=== PATIENT | female | born 1975 | race African-American/Black ===

== ENCOUNTER 2017-03-04 20:57 | Emergency (ER) | payer SELFPAY ==
[2017-03-04 21:10] VITALS: BP 148/94; PULSE 71; TEMP 98.1; BMI 44.6
[2017-03-04] MEDS ORDERED: ALBUTEROL SO4 2.5/IPRATROPIUM 0.5 INH SOL 3 ML VIAL.NEB. NEB ONE ×3 (21:42→22:28)
[2017-03-04] MEDS ORDERED: predniSONE 20 MG TABLET (UD) ONE (22:14)
[2017-03-04] MEDS ORDERED: TOBRAMYCIN 0.3% OPHTH SOLN 5 ML BOTTLE ONE (22:14)
--- NOTE | 2017-03-04 22:45 | PDOC ---
History of Present Illness - General Chief Complaint: Cold Symptoms Stated Complaint: COLD SYMPTOMS Time Seen by Provider: 03/04/17 21:27 History Source: Patient Exam Limitations: No Limitations - History of Present Illness Initial Comments: 03/04/17 22:39 Patient's here with complaints of redness and purulent yellow drainage from left eye. also had an acute asthma exacerbation with ALLERGIES and pollen with wheezing, chest tightness, and cough nonproductive. Has used albuterol nebulizers at home with minimal resolved. 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 Smoker Timing/Duration: reports: changing over time, getting worse Severity: reports: moderate Associated Symptoms: reports: chest pain/soreness, cough, fever/chills, muscle aches, nasal drainage, sore throat Past History - Travel Traveled outside of the country in the last 30 days: No Close contact w/someone who was outside of country & ill: No - Past Medical History Allergies/Adverse Reactions: Allergies Allergy/AdvReac Type Severity Reaction Status Date / Time No Known Allergies Allergy Verified 03/04/17 21:07 Home Medications: Ambulatory Orders Levothyroxine [Synthroid -] 25 mcg PO DAILY 02/15/13 Albuterol Sulfate Inhaler - [Ventolin Hfa Inhaler -] 1 - 2 inh PO PRN 10/05/15 Loratadine [Claritin -] 10 mg PO DAILY 10/05/15 Albuterol 0.083% Nebulizer Irina [Ventolin 0.083% Nebulizer Soln -] 1 neb NEB Q4H PRN #30 vial 03/04/17 Azithromycin [Zithromax -] 250 mg PO UTDICT #6 tab 03/04/17 Prednisone [Deltasone -] 20 mg PO BID #10 tablet 03/04/17 Asthma: Yes Thyroid Disease: Yes - Immunization History Immunization Up to Date: Yes - Psycho/Social/Smoking Cessation Hx Anxiety: No Suicidal Ideation: No Smoking Status: Yes Smoking History: Current every day smoker Have you smoked in the past 12 months: Yes Number of Cigarettes Smoked Daily: 6 Information on smoking cessation initiated: No Hx Alcohol Use: Yes ("RARELY") Drug/Substance Use Hx: No Substance Use Type: None Review of Systems - Review of Systems Able to Perform ROS?: Yes Is the patient limited Indonesian proficient: Yes Constitutional: Yes: Symptoms Reported, See HPI, Chills, Fever, Malaise HEENTM: Yes: Symptoms Reported, See HPI, Eye Pain (with drainage ), Nose Congestion, Throat Pain, Throat Swelling, Difficulty Swallowing Respiratory: Yes: Symptoms reported, See HPI, Cough, Wheezing ABD/GI: Yes: Symptoms Reported Musculoskeletal: Yes: Symptoms Reported, Muscle Weakness *Physical Exam - Vital Signs Last Vital Signs Temp Pulse Resp BP Pulse Ox 98.1 F 71 18 148/94 100 03/04/17 21:07 03/04/17 21:07 03/04/17 21:07 03/04/17 21:07 03/04/17 21:07 - Physical Exam General Appearance: Yes: Nourished, Appropriately Dressed, Apparent Distress HEENT: positive: TALA, TMs Normal (congested but landmarks easily visualized), Pharyngeal Erythema, Nasal Congestion, Rhinorrhea (clear drainage), Sinus Tenderness, TM Bulging, Other (erythematous conjunctiva to left eye with. Yellow drainage and mild swelling to the lids. Visual acuity within normal limits). negative: Normal ENT Inspection, Pharynx Normal (no exudate) Neck: positive: Tender, Supple, Lymphadenopathy (R), Lymphadenopathy (L) Respiratory/Chest: positive: Decreased Breath Sounds (bilateral), Wheezing. negative: Lungs Clear Gastrointestinal/Abdominal: positive: Normal Bowel Sounds, Soft Extremity: positive: Normal Capillary Refill, Normal Inspection, Normal Range of Motion Neurologic: positive: kinesiology internship II-XII NML intact, Fully Oriented, Alert, Motor Strength 5/5 ED Treatment Course - Medications Given in the ED: ED Medications Discontinued Medications Generic Name Dose Route Start Last Admin Trade Name Freq PRN Reason Stop Dose Admin Albuterol/Ipratropium 1 amp 03/04/17 22:28 03/04/17 22:30 Duoneb - NEB 03/04/17 22:29 1 amp ONCE ONE Administration Progress Note - Progress Note Progress Note: Asthma exacerbation with ALLERGIC rhinitis, pharyngitis, conjunctivitis. Will treat with albuterol nebulizers, short course of prednisone, Z-Abimael, and tobramycin drops for conjunctivitis. *DC/Admit/Observation/Transfer Diagnosis at time of Disposition: Conjunctivitis Qualifiers: Conjunctivitis type: acute Acute conjunctivitis type: unspecified Laterality: left Qualified Code(s): H10.32 - Unspecified acute conjunctivitis, left eye Pharyngitis Qualifiers: Pharyngitis/tonsillitis etiology: unspecified etiology Qualified Code(s): J02.9 - Acute pharyngitis, unspecified - Discharge Dispostion Disposition: HOME Condition at time of disposition: Stable Admit: No Decision to Admit order Date/Time: 03/04/17 22:49 - Patient Instructions Printed Discharge Instructions: DI for Acute Bronchitis, DI for Conjunctivitis Additional Instructions: Rest, drink lots of fluids: Teas, water, soups, Pedialyte Saltwater gargles Steamy showers/seem to face break up mucus Avoid contact with others until fevers and cough resolved Lots of handwashing and good hygiene Continue [id number] medications for symptomatic relief Tylenol or Motrin for fever and pain Albuterol nebulizers every 4-6 hours for the next 2 days then as needed Prednisone 40 mg daily for the next 5 days Z-Abimael as directed Tobramycin drops 2 to left eye 4 times a day for 5 days and frequent handwashing Followup with private physician in one to 2 days as needed Return to emergency department for worsened symptoms, fevers, dehydration - Post Discharge Activity Work/School Note: Back to Work
== END 2017-03-04 23:19 | disposition home or self-care (01) ==
LOC: JERFT 20:57
PROC: 3E0F7GC Introduction of Other Therapeutic Substance into Respiratory Tract, Via Natural or Artificial Opening (ICD-10-PCS; principal; 2017-03-04)
DX: J20.9 Acute bronchitis, unspecified (principal); J45.909 Unspecified asthma, uncomplicated; H10.32 Unspecified acute conjunctivitis, left eye; E03.9 Hypothyroidism, unspecified
CPT/HCPCS: 99281-25

== ENCOUNTER 2017-03-09 16:42 | Inpatient (IN) | payer SELFPAY ==
[2017-03-09 16:49] VITALS: BMI 45.4
[2017-03-09] MEDS ORDERED: ALBUTEROL SO4 2.5/IPRATROPIUM 0.5 INH SOL 3 ML VIAL.NEB. NEB ONE ×4 (17:09→17:36)
[2017-03-09] MEDS ORDERED: predniSONE 20 MG TABLET (UD) PO ONE (17:17)
[2017-03-09] MEDS ORDERED: predniSONE 20 MG TABLET (UD) ONE (17:20)
--- NOTE | 2017-03-09 18:17 | PDOC ---
History of Present Illness <Angeline Elliott - Last Filed: 03/09/17 18:36> - General History Source: Patient Exam Limitations: No Limitations - History of Present Illness Initial Comments: 03/09/17 18:12 41 yr female history of asthma no intubations, has stayed overnight in the past for asthma presents to the ER for wheezing, shortness of breath. Pt seen in ER on 03/04/17 for same dc home with zpack , prednisone, , albuterol inhaler. Pt states she is not feeling any better. denies fever. Timing/Duration: reports: week Severity: reports: moderate Possible Cause: Yes: occasional episodes <Bisi Howard - Last Filed: 03/09/17 22:08> - General Chief Complaint: Asthma Stated Complaint: ASTHMA Time Seen by Provider: 03/09/17 17:05 Past History <Angeline Elliott - Last Filed: 03/09/17 18:36> - Past Medical History Asthma: Yes Thyroid Disease: Yes - Immunization History Immunization Up to Date: Yes - Psycho/Social/Smoking Cessation Hx Anxiety: No Suicidal Ideation: No Smoking Status: Yes Smoking History: Current every day smoker Have you smoked in the past 12 months: Yes Number of Cigarettes Smoked Daily: 6 Information on smoking cessation initiated: No Hx Alcohol Use: No Drug/Substance Use Hx: No Substance Use Type: None <Bisi Howard - Last Filed: 03/09/17 22:08> - Past Medical History Allergies/Adverse Reactions: Allergies Allergy/AdvReac Type Severity Reaction Status Date / Time No Known Allergies Allergy Verified 03/09/17 16:49 Home Medications: Ambulatory Orders Albuterol 0.083% Nebulizer Irina [Ventolin 0.083% Nebulizer Soln -] 1 neb NEB Q6H 03/09/17 Albuterol Sulfate Inhaler - [Ventolin Hfa Inhaler -] 2 inh PO Q6H 03/09/17 Levothyroxine [Synthroid -] 25 mcg PO DAILY 03/09/17 Respiratory Specific PMHX - Complaint Specific PMHX Bronchitis: Yes <Bisi Howard - Last Filed: 03/09/17 22:08> Review of Systems - Review of Systems Able to Perform ROS?: Yes Is the patient limited Georgian proficient: No Constitutional: No: Symptoms Reported Respiratory: Yes: Cough, Shortness of Breath, SOB with Exertion, SOB at Rest, Wheezing Cardiac (ROS): No: Symptoms Reported ABD/GI: No: Symptoms Reported : No: Symptoms Reported Musculoskeletal: No: Symptoms Reported Integumentary: No: Symptoms Reported Neurological: No: Symptoms reported <Bisi Howard - Last Filed: 03/09/17 22:08> *Physical Exam - Vital Signs Last Vital Signs Temp Pulse Resp BP Pulse Ox 98.0 F 89 20 136/70 100 03/09/17 16:47 03/09/17 16:47 03/09/17 16:47 03/09/17 16:47 03/09/17 16:47 <Angeline Elliott - Last Filed: 03/09/17 18:36> - Vital Signs Last Vital Signs Temp Pulse Resp BP Pulse Ox 98.0 F 89 20 136/70 100 03/09/17 16:47 03/09/17 16:47 03/09/17 16:47 03/09/17 16:47 03/09/17 16:47 - Physical Exam General Appearance: Yes: Nourished, Appropriately Dressed HEENT: positive: EOMI, TALA, TMs Normal, Pharynx Normal Neck: negative: Tender, Lymphadenopathy (R), Lymphadenopathy (L) Respiratory/Chest: positive: Decreased Breath Sounds, Wheezing Cardiovascular: positive: Regular Rhythm, Regular Rate Gastrointestinal/Abdominal: positive: Normal Bowel Sounds, Soft Musculoskeletal: positive: Normal Inspection Extremity: positive: Normal Capillary Refill, Normal Inspection, Normal Range of Motion Integumentary: positive: Normal Color, Dry, Warm Neurologic: positive: Fully Oriented, Alert, Normal Mood/Affect, Normal Response , Motor Strength 5/5 <Bisi Howard - Last Filed: 03/09/17 22:08> ED Treatment Course - ADDITIONAL ORDERS Additional order review: Laboratory Results 03/09/17 17:26 Urine HCG, Qual Negative - Medications Given in the ED: ED Medications Discontinued Medications Generic Name Dose Route Start Last Admin Trade Name Freq PRN Reason Stop Dose Admin Albuterol/Ipratropium 1 amp 03/09/17 17:09 03/09/17 17:12 Duoneb - NEB 03/09/17 17:10 1 amp ONCE ONE Administration Albuterol/Ipratropium 1 amp 03/09/17 17:32 03/09/17 17:37 Duoneb - NEB 03/09/17 17:33 1 amp ONCE ONE Administration Prednisone 60 mg 03/09/17 17:17 03/09/17 17:22 Deltasone - PO 03/09/17 17:18 60 mg ONCE ONE Administration <Angeline Elliott - Last Filed: 03/09/17 18:36> - LABORATORY CBC & Chemistry Diagram: 03/09/17 18:50 03/09/17 19:09 - ADDITIONAL ORDERS Additional order review: Laboratory Results 03/09/17 17:26 Urine HCG, Qual Negative - RADIOLOGY Radiology Studies Ordered: Category Date Time Status CHEST PA & LAT [RAD] Stat Radiology 03/09/17 17:40 Taken - Medications Given in the ED: ED Medications Discontinued Medications Generic Name Dose Route Start Last Admin Trade Name Freq PRN Reason Stop Dose Admin Albuterol/Ipratropium 1 amp 03/09/17 17:09 03/09/17 17:12 Duoneb - NEB 03/09/17 17:10 1 amp ONCE ONE Administration Albuterol/Ipratropium 1 amp 03/09/17 17:32 03/09/17 17:37 Duoneb - NEB 03/09/17 17:33 1 amp ONCE ONE Administration Prednisone 60 mg 03/09/17 17:17 03/09/17 17:22 Deltasone - PO 03/09/17 17:18 60 mg ONCE ONE Administration <Bisi Howard - Last Filed: 03/09/17 22:08> Progress Note - Progress Note Progress Note: pt continues to have tightness, wheezing after 3 treatments will transfer to main ER for further care and possible admission pt aware spoke to charge nurse Brady and she is making bed for pt <Bisi Howard - Last Filed: 03/09/17 22:08> Medical Decision Making - Medical Decision Making 03/09/17 18:15 cc: wheezing, SOB, coughing not improving with zpack, prednisone (last dose yesterday 20mg), albuterol nebs pt speaking full sentences with some distress will give duoneb x3, prednisone 60mg and re-evaluate pulse ox is 100% on RA however pt is wheezing with sob report given to . pt placed in bed 4. 03/09/17 22:07 <Bisi Howard - Last Filed: 03/09/17 22:08> *DC/Admit/Observation/Transfer <Angeline Elliott - Last Filed: 03/09/17 18:36> <Bisi Howard - Last Filed: 03/09/17 22:08> Diagnosis at time of Disposition: Asthma exacerbation
--- NOTE | 2017-03-09 18:38 | PDOC ---
*Physical Exam - Vital Signs Last Vital Signs Temp Pulse Resp BP Pulse Ox 98.0 F 89 20 136/70 100 03/09/17 16:47 03/09/17 16:47 03/09/17 16:47 03/09/17 16:47 03/09/17 16:47 ED Treatment Course - ADDITIONAL ORDERS Additional order review: Laboratory Results 03/09/17 17:26 Urine HCG, Qual Negative - Medications Given in the ED: ED Medications Discontinued Medications Generic Name Dose Route Start Last Admin Trade Name Charli PRN Reason Stop Dose Admin Albuterol/Ipratropium 1 amp 03/09/17 17:09 03/09/17 17:12 Duoneb - NEB 03/09/17 17:10 1 amp ONCE ONE Administration Albuterol/Ipratropium 1 amp 03/09/17 17:32 03/09/17 17:37 Duoneb - NEB 03/09/17 17:33 1 amp ONCE ONE Administration Prednisone 60 mg 03/09/17 17:17 03/09/17 17:22 Deltasone - PO 03/09/17 17:18 60 mg ONCE ONE Administration Medical Decision Making - Medical Decision Making 03/09/17 18:37 41-year-old female with a history of asthma is being referred from [facility] for persistent expiratory wheezing despite steroids, multiple respiratory treatments. Patient was seen for the same complaint on March 04 and discharged with a course of Zithromax, a steroid taper that she ended yesterday with 20 mg of prednisone and she has a nebulizer at home that she has been using. She does smoke, but she said in the last 24 hours. She is only smoking 1 cigarette. She denies any fever or chills or productive cough. She denies nausea or vomiting She does work at [employer] is therefore exposed to a variety of illnesses. 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
[2017-03-09 19:14] LABS: BASOPHIL 0.6 % (0-2.0); EOSINOPHIL 3.3 % (0-4.5); MCH 26.9 pg (25.7-33.7); MCHC 31.7 g/dl (32.0-36.0); MEAN CELL VOLUME 84.7 fl (80-96); MEAN PLT VOLUME 9.5 fl (7.5-11.1); NEUTROPHILS 70.9 % (42.8-82.8); PLATELET COUNT 212 K/MM3 (134-434); RDW 13.6 % (11.6-15.6)
[2017-03-09 19:45] LABS: ALBUMIN 3.7 g/dl (3.4-5.0); ALK PHOS 72 U/L (45-117); ANION GAP 9 (8-16); BILIRUBIN,TOTAL 0.4 mg/dL (0.2-1.0); CO2 28 mmol/L (21-32); COCKROFT - GAULT 159.2475; CREATININE 0.9 mg/dL (0.55-1.02); GLUCOSE,RANDOM 93 mg/dL (74-106); SGOT/AST 15 U/L (15-37); SGPT/ALT 19 U/L (12-78)
[2017-03-09] MEDS ORDERED: ALBUTEROL SO4 2.5/IPRATROPIUM 0.5 INH SOL 3 ML VIAL.NEB. NEB STA (21:46)
[2017-03-10] MEDS ORDERED: PROMETHAZINE HCL ORAL SYRUP 6.25 MG/5 ML (BULK BOTTLE) PO PRN (01:28)
[2017-03-10] MEDS ORDERED: MONTELUKAST NA 5 MG TAB.CHEW PO SCH (01:30)
[2017-03-10] MEDS: ALBUTEROL SO4 2.5/IPRATROPIUM 0.5 INH SOL 3 ML VIAL.NEB. NEB PRN ×3 (02:26→18:31)
[2017-03-10] MEDS: DEXTROSE 5%-0.45% SALINE 1,000 ML IV SCH (02:35)
[2017-03-10] MEDS ORDERED: MONTELUKAST NA 10 MG TABLET PO SCH (02:47)
[2017-03-10] MEDS: methylPREDNISolone NA SUCC 40 MG/1 ML VIAL IVPB SCH ×4 (02:48→21:37)
[2017-03-10] MEDS ORDERED: PROMETHAZINE HCL 25 MG TABLET PO PRN (02:49)
[2017-03-10] MEDS: BUDESONIDE/FORMETEROL FUMARATE 160/4.5 mcg INHALER IH SCH ×3 (04:24→21:41)
[2017-03-10] MEDS: LEVOFLOXACIN 500 MG IVPB 100 ML IVPB SCH ×2 (04:58→21:37)
[2017-03-10] MEDS: LEVOTHYROXINE NA 25 MCG TABLET (FP) PO SCH (06:32)
[2017-03-10 08:08] LABS: BASOPHIL 0.2 % (0-2.0); MCH 27.7 pg (25.7-33.7); MCHC 32.8 g/dl (32.0-36.0); MEAN CELL VOLUME 84.4 fl (80-96); MEAN PLT VOLUME 9.2 fl (7.5-11.1); NEUTROPHILS 87.7 % (42.8-82.8); PLATELET COUNT 231 K/MM3 (134-434); RDW 13.7 % (11.6-15.6); WHITE BLOOD COUNT 9.4 K/mm3 (4.0-10.0)
[2017-03-10 08:31] LABS: ALBUMIN 3.5 g/dl (3.4-5.0); ANION GAP 11 (8-16); CALCIUM 9.1 mg/dL (8.5-10.1); CO2 24 mmol/L (21-32); COCKROFT - GAULT 179.1545; CREATININE 0.8 mg/dL (0.55-1.02); GLUCOSE,RANDOM 117 mg/dL (74-106); SGOT/AST 16 U/L (15-37); SGPT/ALT 22 U/L (12-78)
[2017-03-10 08:32] LABS: ALK PHOS 73 U/L (45-117); BILIRUBIN,TOTAL 0.4 mg/dL (0.2-1.0); TOT PROT 6.8 g/dl (6.4-8.2)
[2017-03-10] MEDS ORDERED: PT OWN MED DRAWER 7, Y5N ONE (09:25)
[2017-03-10] MEDS: HEPARIN NA (PORCINE) 5,000 UNITS/ML 1ML VIAL SQ SCH ×2 (09:27→21:37)
--- NOTE | 2017-03-10 11:44 | EKG ---
Test Reason : Blood Pressure : / mmHG Vent. Rate : 080 BPM Atrial Rate : 080 BPM P-R Int : 164 ms QRS Dur : 086 ms QT Int : 364 ms P-R-T Axes : 074 016 042 degrees QTc Int : 419 ms NORMAL SINUS RHYTHM NORMAL ECG NO PREVIOUS ECGS AVAILABLE Confirmed by BERNARD SIERRA MD ([id number]) on 03/10/2017 11:43:57 AM Referred By: Confirmed By:BERNARD SIERRA MD
--- NOTE | 2017-03-10 14:56 | PN ---
Progress Note (short form) - Note Progress Note: PULMONARY CONSULTATION DICTATED 03/10/17 IMP ASTHMA EXACERBATION HYPOTHYROIDISM SMOKER PLAN IV STEROIDS INHALED BRONCHODILATORS O2 MONITOR PEAK FLOW PFTS OUTPATIENT IGE LEVEL OUTPATIENT SMOKING CESSATION COUNSELED DR CHAUDHARY Problem List - Problems (1) Asthma exacerbation Code(s): J45.901 - UNSPECIFIED ASTHMA WITH (ACUTE) EXACERBATION (2) Hypothyroid Code(s): E03.9 - HYPOTHYROIDISM, UNSPECIFIED (3) Tobacco abuse Code(s): Z72.0 - TOBACCO USE
--- NOTE | 2017-03-10 16:57 | CONS ---
DATE OF CONSULTATION: 03/10/2017 REFERRING PHYSICIAN: María Hui MD The patient is a 41-year-old black female with a past med of chronic asthma, history of tobacco use, currently still smoking, admitted to [facility] with complaint of increasing shortness of breath, cough, and bronchospasm. The patient states she was doing well until March 04. At the time, she started developing cough and chest congestion. She attributed this to the pollen. She was seen in the emergency room and given prednisone, inhaled bronchodilator, with initial improvement. She states that while working at [employer], she started using extra strength production sound mixer the past couple of days, which started causing increased severity of the asthma symptoms. The symptoms progressively got worse, at which time she presented to the emergency room. In the ER, she was treated with IV steroids, inhaled bronchodilators, and transferred up to floor for further management. She has never been intubated although has been hospitalized in the past. There is no history of recent travel. There is no history of DVT or PE in the past. Denies any hemoptysis. Denies any chest pains or palpitations. Past medical history, again, includes chronic persistent asthma and allergies. Current medications include DuoNeb, Singulair, Phenergan, Synthroid, Symbicort, Solu-Medrol, and Levaquin. REVIEW OF SYSTEMS: Positive cough, positive bronchospasm. No chest pain, no palpitation. Positive cough. No abdominal pain. No lower extremity edema. PHYSICAL EXAMINATION: General: The patient is a well-developed, well-nourished female, awake, alert, in no acute distress. Vital Signs: She is currently afebrile. Blood pressure is 139/84. Respiratory rate is 18. O2 saturation is 95% on room air. HEENT: Normocephalic, atraumatic. Neck: Supple. Heart: Regular, S1, S2. Chest: Scattered bilateral wheezes. Abdomen: Soft. Bowel sounds are positive. Extremities: No cyanosis, edema. LABORATORIES: WBC is 9.4, hemoglobin 12.5, hematocrit 38.2, with a platelet count 231,000. BUN is 8, creatinine 0.8. Chest x-ray reveals no infiltrates and no effusion. IMPRESSION: 1. Acute asthma exacerbation, likely secondary to exposure to cleaning solvents as well as . 2. History of hypothyroidism. PLAN: Continue IV steroids, inhaled bronchodilators, supplemental O2. Start Symbicort 160/4.5 two puffs q.12 hours, inhaled bronchodilators q.4 hours p.r.n. Monitor peak flow. PFTs as outpatient. ARIANNA CHAUDHARY M.D. FRANDY/[id number]
--- NOTE | 2017-03-10 20:52 | PN ---
Progress Note, Physician History of Present Illness: No new complaints - Current Medication List Current Medications: Active Medications Albuterol/Ipratropium (Duoneb -) 1 amp NEB Q6H PRN PRN Reason: SHORTNESS OF BREATH Last Admin: 03/10/17 18:31 Dose: 1 amp Budesonide/Formoterol Fumarate (Symbicort 160/4.5mcg -) 2 puff IH BID [facility] Last Admin: 03/10/17 09:29 Dose: 2 puff Heparin Sodium (Porcine) (Heparin -) 5,000 unit SQ BID [facility] Last Admin: 03/10/17 09:27 Dose: 5,000 unit Dextrose/Sodium Chloride (D5-1/2ns -) 1,000 mls @ 50 mls/hr IV ASDIR [facility] Last Admin: 03/10/17 02:35 Dose: 50 mls/hr Levofloxacin (Levaquin 500 Mg Premixed Ivpb -) 100 mls @ 100 mls/hr IVPB DAILY [facility] Last Admin: 03/10/17 04:58 Dose: 100 mls/hr Levothyroxine Sodium (Synthroid -) 25 mcg PO DAILY@0700 [facility] Last Admin: 03/10/17 06:32 Dose: 25 mcg Methylprednisolone Sodium Succinate (Solu-Medrol -) 40 mg IVPB Q6H-IV [facility] Last Admin: 03/10/17 16:05 Dose: 40 mg Montelukast Sodium (Singulair -) 10 mg PO HS [facility] Promethazine HCl (Phenergan -) 12.5 mg PO Q6H PRN PRN Reason: NAUSEA AND/OR VOMITING Last Admin: 03/10/17 05:13 Dose: 12.5 mg - Objective Vital Signs: Vital Signs Temperature 98.5 F 03/10/17 14:00 Pulse Rate 97 H 03/10/17 14:00 Respiratory Rate 18 03/10/17 18:00 Blood Pressure 144/88 03/10/17 14:00 O2 Sat by Pulse Oximetry (%) 95 03/10/17 18:00 Constitutional: Yes: Well Nourished HENT: Yes: WNL Neck: Yes: Supple Cardiovascular: Yes: WNL, Regular Rate and Rhythm Respiratory: Yes: Wheezes Gastrointestinal: Yes: WNL, Normal Bowel Sounds, Soft Labs: CBC, BMP 03/10/17 07:08 03/10/17 07:08 Problem List - Problems (1) Asthma exacerbation Assessment/Plan: Cont IV steroids Cont IV levaquin Cont nebulizers As per pulmonary Code(s): J45.901 - UNSPECIFIED ASTHMA WITH (ACUTE) EXACERBATION (2) Hypothyroid Assessment/Plan: Cont levothyroxine Code(s): E03.9 - HYPOTHYROIDISM, UNSPECIFIED (3) Tobacco abuse Code(s): Z72.0 - TOBACCO USE (4) Morbid obesity Code(s): E66.01 - MORBID (SEVERE) OBESITY DUE TO EXCESS CALORIES
[2017-03-11] MEDS: DEXTROSE 5%-0.45% SALINE 1,000 ML IV SCH (02:00)
[2017-03-11] MEDS: methylPREDNISolone NA SUCC 40 MG/1 ML VIAL IVPB SCH ×2 (03:13→10:08)
[2017-03-11] MEDS: ALBUTEROL SO4 2.5/IPRATROPIUM 0.5 INH SOL 3 ML VIAL.NEB. NEB PRN ×2 (04:15→10:32)
[2017-03-11] MEDS: LEVOTHYROXINE NA 25 MCG TABLET (FP) PO SCH (06:35)
[2017-03-11] MEDS ORDERED: PT OWN MED DRAWER 7, Y5N ONE (10:07)
[2017-03-11] MEDS: HEPARIN NA (PORCINE) 5,000 UNITS/ML 1ML VIAL SQ SCH (10:08)
[2017-03-11] MEDS: LEVOFLOXACIN 500 MG IVPB 100 ML IVPB SCH (10:08)
[2017-03-11] MEDS: BUDESONIDE/FORMETEROL FUMARATE 160/4.5 mcg INHALER IH SCH (10:09)
--- NOTE | 2017-03-11 11:37 | PN ---
Progress Note (short form) - Note Progress Note: PULMONARY Feeling better. Less cough and wheezing. Peak flow 350. Last Vital Signs Temp Pulse Resp BP Pulse Ox 98.0 F 92 H 18 119/71 95 03/11/17 07:12 03/11/17 07:12 03/11/17 07:12 03/11/17 07:12 03/10/17 21:00 Gen: NAD at rest Heart: RRR Lung: scattered wheezes Abd: soft, nontender Ext: no edema CBC, BMP 03/10/17 07:08 03/10/17 07:08 Active Medications Albuterol/Ipratropium (Duoneb -) 1 amp NEB Q6H PRN PRN Reason: SHORTNESS OF BREATH Last Admin: 03/11/17 10:32 Dose: 1 amp Budesonide/Formoterol Fumarate (Symbicort 160/4.5mcg -) 2 puff IH BID [facility] Last Admin: 03/11/17 10:09 Dose: 2 puff Heparin Sodium (Porcine) (Heparin -) 5,000 unit SQ BID [facility] Last Admin: 03/11/17 10:08 Dose: 5,000 unit Dextrose/Sodium Chloride (D5-1/2ns -) 1,000 mls @ 50 mls/hr IV ASDIR [facility] Last Admin: 03/11/17 02:00 Dose: 50 mls/hr Levofloxacin (Levaquin 500 Mg Premixed Ivpb -) 100 mls @ 100 mls/hr IVPB DAILY [facility] Last Admin: 03/11/17 10:08 Dose: 100 mls/hr Levothyroxine Sodium (Synthroid -) 25 mcg PO DAILY@0700 [facility] Last Admin: 03/11/17 06:35 Dose: 25 mcg Methylprednisolone Sodium Succinate (Solu-Medrol -) 40 mg IVPB Q6H-IV [facility] Last Admin: 03/11/17 10:08 Dose: 40 mg Montelukast Sodium (Singulair -) 10 mg PO HS [facility] Last Admin: 03/10/17 21:41 Dose: 10 mg Promethazine HCl (Phenergan -) 12.5 mg PO Q6H PRN PRN Reason: NAUSEA AND/OR VOMITING Last Admin: 03/10/17 05:13 Dose: 12.5 mg A/P Acute Asthma Exacerbation Hypothyroidism Smoker - can change steroids to PO and taper as outpt - inhaled bronchodilators - complete antibiotics - outpt f/u and PFTs - smoking cessation - can d/c home from pulmonary standpoint
[2017-03-11 13:00] VITALS: BP 139/84; PULSE 93; TEMP 98.7
--- NOTE | 2017-03-11 13:22 | DS ---
Physical Examination Vital Signs: Vital Signs Temperature 98.7 F 03/11/17 12:59 Pulse Rate 93 H 03/11/17 12:59 Respiratory Rate 18 03/11/17 12:59 Blood Pressure 139/84 03/11/17 12:59 O2 Sat by Pulse Oximetry (%) 92 L 03/11/17 09:00 Constitutional: Yes: Well Nourished Eyes: Yes: WNL HENT: Yes: WNL Neck: Yes: Supple Cardiovascular: Yes: WNL, Regular Rate and Rhythm Respiratory: Yes: WNL, Regular, CTA Bilaterally Gastrointestinal: Yes: WNL, Normal Bowel Sounds, Soft Labs: CBC, BMP 03/10/17 07:08 03/10/17 07:08 Discharge Summary Reason For Visit: ASTHMA EXACERBATION Current Active Problems Asthma exacerbation (Acute) Hypothyroid (Acute) Tobacco abuse (Acute) Hospital Course: Pt admitted for asthma exacerbation CXR was negative Pt improved on IV steroids /IV levaquin. Pt was seen by pulmonary and changed to PO prednisone/levaquin. Pt discharged home and is to f/u in my office this week. Pt also advised that she has to stop smoking and use nicoderm patch for wc she was given a prewscription. Condition: Fair - Instructions Diet, Activity, Other Instructions: Regular diet See Dr Lafleur pr Dr Hui this week [phone] Referrals: David Lafleur MD [Primary Care Provider] - Disposition: HOME - Home Medications Comprehensive Discharge Medication List: Ambulatory Orders Albuterol 0.083% Nebulizer Irina [Ventolin 0.083% Nebulizer Soln -] 1 neb NEB Q6H 03/09/17 Albuterol Sulfate Inhaler - [Ventolin HFA Inhaler -] 2 inh PO Q6H 03/09/17 Levothyroxine [Synthroid -] 25 mcg PO DAILY 03/09/17 Budesonide/Formeterol Fumarate [SYMBICORT 160/4.5mcg -] 2 puff IH BID #1 inhaler 03/11/17 Levofloxacin [Levaquin] 500 mg PO DAILY #10 tablet 03/11/17 Montelukast Na [Singulair -] 10 mg PO HS tab.chew 03/11/17 Montelukast Na [Singulair -] 10 mg PO HS tablet 03/11/17 Prednisone [Deltasone -] 40 mg PO BID #20 tablet 03/11/17
== END 2017-03-11 14:25 | disposition home or self-care (01) | DRG 141 ==
LOC: JER 16:42 → JERFT 16:42 → JERBED 18:49 → UNDOADMIN 19:01 → JERBED 19:01 → J5S 20:58
PROVIDERS: ADMIT Internal Medicine; ATTEND Internal Medicine
DX: J45.901 Unspecified asthma with (acute) exacerbation (principal); E03.9 Hypothyroidism, unspecified; F17.210 Nicotine dependence, cigarettes, uncomplicated; E66.01 Morbid (severe) obesity due to excess calories; Z68.42 Body mass index [BMI] 45.0-49.9, adult
CPT/HCPCS: 36415; 71020-TC; 80053; 84703; 85025; 93005; 93010; 94150; 94640; 99284-25; J1644

== ENCOUNTER 2019-09-21 08:04 | Emergency (ER) | payer OTHER ==
[2019-09-21 08:19] VITALS: BP 145/80; PULSE 85; TEMP 98.5; BMI 44.6
--- NOTE | 2019-09-21 08:27 | PDOC ---
History of Present Illness - General Chief Complaint: Injury Stated Complaint: FALL Time Seen by Provider: 09/21/19 08:19 History Source: Patient Exam Limitations: Clinical Condition - History of Present Illness Initial Comments: 09/21/19 08:44 Patient with no significant past medical history presented with complaint of pain and swelling to dorsal aspect of left hand and thumb part of wrist status post trip and fall on ice on outstretched hand this morning. Patient reported increased pain to back of left hand with movement. Patient did not take anything for pain. Denies previous injury or trauma to hand or wrist Occurred: reports: just prior to arrival Severity: reports: moderate Pain Location: reports: upper extremity (left wrist and hand) Method of Injury: Yes: fall Loss of Consciousness: no loss of consciousness Associated Symptoms (Fall): denies symptoms Past History - Past Medical History Allergies/Adverse Reactions: Allergies Allergy/AdvReac Type Severity Reaction Status Date / Time No Known Allergies Allergy Verified 09/21/19 08:14 Home Medications: Ambulatory Orders Albuterol 0.083% Nebulizer Irina [Ventolin 0.083% Nebulizer Soln -] 1 neb NEB Q6H 03/09/17 Albuterol Sulfate Inhaler - [Ventolin HFA Inhaler -] 2 inh PO Q6H 03/09/17 Levothyroxine [Synthroid -] 25 mcg PO DAILY 03/09/17 Budesonide/Formeterol Fumarate [SYMBICORT 160/4.5mcg -] 2 puff IH BID #1 inhaler 03/11/17 Levofloxacin [Levaquin] 500 mg PO DAILY #10 tablet 03/11/17 Montelukast Na [Singulair -] 10 mg PO HS tab.chew 03/11/17 Montelukast Na [Singulair -] 10 mg PO HS tablet 03/11/17 predniSONE [Deltasone -] 40 mg PO BID #20 tablet 03/11/17 Arm Brace [Wrist Brace] 1 each MC DAILY #1 each 09/21/19 Ibuprofen 800 mg PO Q8H PRN #20 tablet 09/21/19 Asthma: Yes COPD: No Thyroid Disease: Yes - Immunization History Immunization Up to Date: Yes - Psycho Social/Smoking Cessation Hx Smoking Status: Yes Smoking History: Current every day smoker Have you smoked in the past 12 months: Yes Number of Cigarettes Smoked Daily: 5 Information on smoking cessation initiated: No Hx Alcohol Use: No Drug/Substance Use Hx: No Substance Use Type: None Review of Systems - Review of Systems Able to Perform ROS?: Yes Is the patient limited Malay proficient: No Constitutional: No: Malaise, Weakness HEENTM: No: Symptoms Reported Respiratory: No: Symptoms reported, See HPI, Cough, Orthopnea, Shortness of Breath, SOB with Exertion, SOB at Rest, Stridor, Wheezing, Productive cough, Hemoptysis, Other Cardiac (ROS): No: Symptoms Reported, See HPI, Chest Pain, Edema, Irregular Heart Rate, Lightheadedness, Palpitations, Syncope, Chest Tightness, Other ABD/GI: No: Symptoms Reported Musculoskeletal: Yes: Symptoms Reported, See HPI, Joint Pain (left wrist pain), Joint Swelling (left wrist ), Muscle Pain (dorsal left hand pain) Integumentary: Yes: Symptoms Reported, See HPI, Other (hand swelling) Neurological: No: Symptoms reported, Numbness, Paresthesia, Tingling All Other Systems: Reviewed and Negative *Physical Exam - Vital Signs Last Vital Signs Temp Pulse Resp BP Pulse Ox 98.5 F 85 18 145/80 99 09/21/19 08:15 09/21/19 08:15 09/21/19 08:15 09/21/19 08:15 09/21/19 08:15 - Physical Exam 09/21/19 08:47 GENERAL: Well developed, well nourished. Awake and alert in mild acute distress. PULMONARY: No evidence of respiratory distress. MUSCULOSKELETAL : moderate tenderness to dorsal thenar muscle of left hand with mild swelling to dorsal aspect of left hand over radial side. No tenderness to left wrist or forearm. No visible deformity to left hand or wrist SKIN: Warm and dry. Normal capillary refill. Mild swelling to posterior thenar muscle of left hand NEUROLOGICAL: Alert, awake, appropriate. No motor deficits in the lower extremities. Gait is normal without ataxia. PSYCHIATRIC: Cooperative. Good eye contact. Appropriate mood and affect. General Appearance: Yes: Nourished, Appropriately Dressed, Mild Distress ED Treatment Course - RADIOLOGY Radiology Studies Ordered: Category Date Time Status WRIST W/HAND-LEFT* [RAD] Stat Radiology 09/21/19 08:23 Ordered Medical Decision Making - Medical Decision Making 09/21/19 08:45 Patient with no significant past medical history presented with complaint of pain and swelling to dorsal aspect of left hand and thumb part of wrist status post trip and fall on ice on outstretched hand this morning. Patient reported increased pain to back of left hand with movement. Patient did not take anything for pain. Denies previous injury or trauma to hand or wrist Exam significant for moderate tenderness to dorsal thenar muscle of left hand with mild swelling to dorsal aspect of left hand over radial side. No tenderness to left wrist or forearm. No visible deformity to left hand or wrist. X-ray of left hand and wrist shows no acute fracture dislocation. Symptoms likely wrist and hand sprain. Left wrist and hand wrapped with Andrew bandage. Patient placed in prefabricated wrist brace and advised to do cold compress today switch to hot compress tomorrow as needed for swelling with orthopedics follow-up Discharge - Discharge Information Problems reviewed: Yes Clinical Impression/Diagnosis: Sprain of hand, left Qualifiers: Encounter type: initial encounter Qualified Code(s): S63.92XA - Sprain of unspecified part of left wrist and hand, initial encounter Left wrist sprain Qualifiers: Encounter type: initial encounter Qualified Code(s): S63.502A - Unspecified sprain of left wrist, initial encounter Condition: Stable Disposition: HOME - Admission No - Additional Discharge Information Prescriptions: Arm Brace [Wrist Brace] 1 each MC DAILY #1 each Ibuprofen 800 mg PO Q8H PRN #20 tablet PRN Reason: pain - Follow up/Referral Referrals: Jonathan Vasquez MD [Staff Physician] - - Patient Discharge Instructions Patient Printed Discharge Instructions: DI for Wrist Sprain Additional Instructions: X-ray of shows no acute fracture or dislocation. Your pain is likely from sprain. Apply cold compress today 2-3 times a day as needed for swelling and take prescribed Motrin as needed for pain. Use prescribed wrist brace daily for at least a week to help with healing. Follow-up referred hand orthopedics if symptoms persist for more than 4 days - Post Discharge Activity Work/Back to School Note: Back to Work
[2019-09-21] MEDS ORDERED: IBUPROFEN 400 MG TABLET (FP) PO ONE ×2 (08:43→08:47)
== END 2019-09-21 09:03 | disposition home or self-care (01) ==
LOC: JERFT 08:04 → JER 08:04 → JERFT 09:03
DX: S63.502A Unspecified sprain of left wrist, initial encounter (principal); S63.92XA Sprain of unspecified part of left wrist and hand, initial encounter; W00.0XXA Fall on same level due to ice and snow, initial encounter; Y93.89 Activity, other specified; Y92.410 Unspecified street and highway as the place of occurrence of the external cause; F17.210 Nicotine dependence, cigarettes, uncomplicated; J45.909 Unspecified asthma, uncomplicated
CPT/HCPCS: 73110-TC-LT-FY; 73130-TC-LT-FY; 99281-25

== ENCOUNTER 2019-11-03 11:36 | Emergency (ER) | payer SELFPAY ==
[2019-11-03 11:48] VITALS: BMI 43.9
[2019-11-03] MEDS ORDERED: DEXAMETHASONE SOD PHOSPHATE 10 MG/1 ML VIAL ONE (11:51)
[2019-11-03] MEDS ORDERED: ALBUTEROL SO4 2.5/IPRATROPIUM 0.5 INH SOL 3 ML VIAL.NEB. NEB ONE ×3 (11:51→12:49)
[2019-11-03] MEDS ORDERED: diphenhydrAMINE HCL 25 MG CAPSULE (FP) PO ONE ×2 (12:46→12:50)
--- NOTE | 2019-11-03 12:50 | PDOC ---
Documentation entered by Adrien Mehta SCRIBE, acting as scribe for Gissel Martinez MD. Gissel Martinez MD: This documentation has been prepared by the Janine bernard Nirvannie, SCRIBE, under my direction and personally reviewed by me in its entirety. I confirm that the documentation accurately reflects all work, treatment, procedures, and medical decision making performed by me. History of Present Illness - General Chief Complaint: Asthma Stated Complaint: ASTHMA History Source: Patient Exam Limitations: No Limitations - History of Present Illness Initial Comments: 11/03/19 14:01 HPI: The patient is a 44YOF with significant past medical history of asthma (hx hospitalizations) and hypothyroidism presenting to the ED via EMS with 2 weeks of progressively worsening shortness of breath. As per patient, her daughter recently got a guinea pig and since then she has been experiencing shortness of breath and a cough. Patient notes when she leaves her house the symptoms are alleviated and reoccur while at home. She notes associated chest tightness. She endorses drinking medicinal tea for bronchitis, without relief, prompting her arrival to the ED. Patient notes receiving 2 duonebs while en route. She notes an associated itchy rash to the bilateral thighs. Denies history of intubations or ICU admissions. Denies fever, chills, chest pain, SOB, palpitation, dizziness, weakness, N, V, D, abdominal pain, bladder and bowel problems, focal weakness/paresthesias, leg swelling/pain. No sick contacts or travel. No new changes in medications. No suspicious food intake Allergies: None Past Medical History/PSH: asthma (hx hospitalizations) and hypothyroidism Social history: Lives with family. +tobacco. Social ETOH Marijuana use. Meds: as documented in EMR Family history: noncontributory PMD: Dr. Lafleur ROS: Constitutional: no fevers or chills. HEENT: no headache or dizziness. +congestion. No visual/hearing disturbances. CVS: no cp or syncope. Resp: +sob. +cough. Gastrointestinal: no abdominal pain, nausea or vomiting. Genitourinary: no urinary sx, hematuria. MUSCULOSKELETAL: No joint pain and swelling. No neck or back pain. SKIN: no redness or skin changes, no discharge, +rash. No wounds. Hematologic: no easy bruising/bleeding. NEUROLOGIC: No headache, dizziness, LOC or altered mental status. No weakness, numbness or tingling. Psych: no anxiety or depression Allergic/Immunologic: no allergies All other systems reviewed and negative, or as documented in HPI. Physical Exam: General: Well appearing, awake and alert, NAD. HEENT: NCAT, PERRL, EOMI, clear conjunctiva, anicteric, moist mucus membranes, clear oropharynx, no oral lesions.. Neck: neck supple, FROM Resp: + Bilateral expiratory wheezing. normal and even respirations, no respiratory distress CVS: RRR, no murmurs, 2+ peripheral pulses throughout, no peripheral edema Abdomen: soft, NTND, no rebound or guarding. No CVAT. Back: nontender, normal inspection and ROM MSK: no edema, MCQUEEN x4, ROM intact. No clubbing or cyanosis. normal bulk and tone. Extremities: no calf tenderness Neuro: alert, oriented appropriately; no focal neurologic deficits Psych: Calm and cooperative Skin: +Urticarial rash to the blt thighs R>L. warm and well perfused, cap refill <2 sec, normal color Past History - Past Medical History Allergies/Adverse Reactions: Allergies Allergy/AdvReac Type Severity Reaction Status Date / Time No Known Allergies Allergy Verified 09/21/19 08:14 Home Medications: Ambulatory Orders Albuterol 0.083% Nebulizer Irina [Ventolin 0.083% Nebulizer Soln -] 1 neb NEB Q6H 03/09/17 Albuterol Sulfate Inhaler - [Ventolin HFA Inhaler -] 2 inh PO Q6H 03/09/17 Levothyroxine [Synthroid -] 25 mcg PO DAILY 03/09/17 Budesonide/Formeterol Fumarate [SYMBICORT 160/4.5mcg -] 2 puff IH BID #1 inhaler 03/11/17 Montelukast Na [Singulair -] 10 mg PO HS tablet 03/11/17 predniSONE [Deltasone -] 40 mg PO BID #20 tablet 03/11/17 Ibuprofen 800 mg PO Q8H PRN #20 tablet 09/21/19 Albuterol 0.083% Nebulizer Irina [Ventolin 0.083% Nebulizer Soln -] 1 neb NEB Q6H PRN #100 vial 11/03/19 Albuterol Sulfate Inhaler - [Ventolin HFA Inhaler -] 1 - 2 inh PO QID PRN #1 inhaler 11/03/19 Prednisone [Prednisone 50 MG TABLETS] 50 mg PO DAILY #4 tablet 11/03/19 Asthma: Yes COPD: No Thyroid Disease: Yes - Immunization History Immunization Up to Date: Yes - Psycho Social/Smoking Cessation Hx Smoking Status: Yes Smoking History: Current every day smoker Have you smoked in the past 12 months: Yes Number of Cigarettes Smoked Daily: 6 Information on smoking cessation initiated: No Hx Alcohol Use: No Drug/Substance Use Hx: No Substance Use Type: None Respiratory Specific PMHX - Complaint Specific PMHX Hx Bronchitis: Yes *Physical Exam - Vital Signs Last Vital Signs Temp Pulse Resp BP Pulse Ox 98.3 F 103 H 19 156/97 0 L 11/03/19 11:40 11/03/19 11:40 11/03/19 11:40 11/03/19 11:40 11/03/19 11:40 Heart Score/ECG Review #1 ECG reviewed & interpreted by me at: 13:15 General ECG Interpretation: Sinus Rhythm, Normal Rate, Normal Intervals 11/03/19 13:17 EKG normal sinus rhythm 85 bpm , no interval abnormalities, narrow QRS, ST and T wave segments and morphology normal. ED Treatment Course - RADIOLOGY Radiology Studies Ordered: Category Date Time Status CHEST PA & LAT [RAD] Stat Radiology 11/03/19 12:13 Ordered Discharge - Discharge Information Problems reviewed: Yes Clinical Impression/Diagnosis: Urticaria Asthma exacerbation Qualifiers: Asthma severity: mild Asthma persistence: intermittent Qualified Code(s): J45.21 - Mild intermittent asthma with (acute) exacerbation Allergies Qualifiers: Encounter type: initial encounter Qualified Code(s): T78.40XA - Allergy, unspecified, initial encounter Condition: Stable Disposition: HOME - Admission No - Additional Discharge Information Prescriptions: Albuterol 0.083% Nebulizer Irina [Ventolin 0.083% Nebulizer Soln -] 1 neb NEB Q6H PRN #100 vial PRN Reason: cough/wheezing Albuterol Sulfate Inhaler - [Ventolin HFA Inhaler -] 1 - 2 inh PO QID PRN #1 inhaler PRN Reason: cough/wheezing Prednisone [Prednisone 50 MG TABLETS] 50 mg PO DAILY #4 tablet - Follow up/Referral Referrals: [facility] [place] [facility] [place] [Provider Group] [facility] [Provider Group] Chato Burt MD [Staff Physician] - Brian Raza MD [Staff Physician] - - Patient Discharge Instructions Patient Printed Discharge Instructions: DI for Asthma -- Adult, Alternative Therapies for Allergies Additional Instructions: 1) Please follow-up with your primary care doctor in the next 1-2 days. Please call tomorrow for for any urgent issues. pulmonologists referral given for your asthma/allergy evaluation. 2) You were given a copy of the tests performed today. Please bring the results with you and review them with your primary care doctor. Your laboratory / imaging results were normal, 3) If you have any worsening of symptoms or any other concerns please return to the ED immediately. Return if worsening symptoms including fevers, headache, vomiting, visual or hearing disturbances, abdominal pain, chest pain, shortness of breath, syncope, dehydration, inability to take things by mouth/vomiting, altered mental status, or worsening concerning symptoms. 4) Please continue taking your home medications as directed. your medications on discharge include prednisone once a day x4 more days start on 11/05/2019 as you had received long-acting dexamethasone today. You are also given albuterol ampules as well as inhaler to be used every 4-6 hours as needed for cough/ wheezing.. side effects may include upset stomach, abdominal pain, vomiting, or diarrhea. do not drink alcohol with your medications. Stay well hydrated and rest adequately. Make an appointment. If you cannot follow-up with your primary care doctor please return to the ED stop smoking use air filter to take out the allergens and viruses and pet dander that could be contributing to your asthma flare. - Post Discharge Activity Work/Back to School Note: Back to Work
[2019-11-03 14:23] VITALS: BP 136/78; PULSE 98; TEMP 98.5
--- NOTE | 2019-11-03 15:38 | EKG ---
Test Reason : Blood Pressure : / mmHG Vent. Rate : 085 BPM Atrial Rate : 085 BPM P-R Int : 168 ms QRS Dur : 084 ms QT Int : 372 ms P-R-T Axes : 078 025 057 degrees QTc Int : 442 ms NORMAL SINUS RHYTHM WITH SINUS ARRHYTHMIA Poor r wave progression ABNORMAL ECG WHEN COMPARED WITH ECG OF 09-MAR-2017 18:55, NO SIGNIFICANT CHANGE WAS FOUND Confirmed by MD Brian, Alverto ([id number]) on 11/03/2019 3:38:29 PM Referred By: Confirmed By:Alverto Torres MD
== END 2019-11-03 14:25 | disposition home or self-care (01) ==
LOC: JER 11:36
PROC: 3E0F7GC Introduction of Other Therapeutic Substance into Respiratory Tract, Via Natural or Artificial Opening (ICD-10-PCS; principal; 2019-11-03)
DX: T78.40XA Allergy, unspecified, initial encounter (principal); J45.21 Mild intermittent asthma with (acute) exacerbation; F17.210 Nicotine dependence, cigarettes, uncomplicated; E07.9 Disorder of thyroid, unspecified
CPT/HCPCS: 71046-TC-FY; 93005; 93010; 99282-25

== ENCOUNTER 2019-11-23 03:24 | Emergency (ER) | payer SELFPAY ==
[2019-11-23 03:34] VITALS: TEMP 97.9; BMI 44.6
--- NOTE | 2019-11-23 03:45 | PDOC ---
History of Present Illness - General Chief Complaint: Asthma Stated Complaint: DIFFICULTY BREATHING,ASTHMA Time Seen by Provider: 11/23/19 03:45 - History of Present Illness Initial Comments: HPI: 44yo F with PMH of asthma, eczema, and hypothyroidism presenting with shortness of breath. Patient states this feels like an asthma exacerbation. She last had an exacerbation at the end of October and was evaluated in this ED. Was given a course of 50mg prednisone at that time which she completed. 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 Has been hospitalized for asthma before, most recently two years ago. Never been intubated. Asthma triggers include changing weather. Denies sick contacts or recent travel. Has used albuterol treatments about every four hours with some relief, including two prior to arrival. Has had cough , congestion, and chest tightness associated with the cough. Would have come earlier in the day but wanted to put her daughter to sleep first. Cut back on smoking and has not smoked in the past 48 hours. No fevers, but endorses chills. ROS: Constitutional: no fever, +chills HEENT: no throat pain, no dysphagia Cardiovascular: +chest tightness, no palpitations Respiratory: +cough, +shortness of breath Gastrointestinal: no abdominal pain, no nausea Genitourinary: no dysuria, no hematuria Musculoskeletal: no myalgia, no arthralgia Skin: no rash, no itching Neurologic: no headache, no weakness Psych: no agitation, no anxiety PE: General: Awake, alert, and fully oriented, in no acute distress Head: No signs of trauma Eyes: EOMI, sclera anicteric ENT: Moist mucus membranes Neck: Normal ROM, supple Lungs: Diffuse wheezes bilaterally, will take a breath after each sentence Cardio: Regular rhythm, S1 and S2 present Abdomen: Soft, nontender. No guarding, no rebound, no masses Extremities: Normal range of motion, Distal pulses present, No calf tenderness SKIN: Warm, Dry, normal turgor Neurologic: Cranial nerves II through XII grossly intact. Normal speech ED Course/MDM: DDX including but not limited to asthma exacerbation, pneumonia, COPD, bronchitis Duonebs Solu-medrol Magnesium CBC WBC 6.7 K/mm3 (4.0-10.0) 11/23/19 04:15 RBC 4.19 M/mm3 (3.60-5.2) 11/23/19 04:15 Hgb 11.0 GM/dL (10.7-15.3) 11/23/19 04:15 Hct 34.6 % (32.4-45.2) 11/23/19 04:15 MCV 82.4 fl (80-96) 11/23/19 04:15 MCH 26.2 pg (25.7-33.7) 11/23/19 04:15 MCHC 31.8 g/dl (32.0-36.0) L 11/23/19 04:15 RDW 16.2 % (11.6-15.6) H 11/23/19 04:15 Plt Count 231 K/MM3 (134-434) 11/23/19 04:15 MPV 9.1 fl (7.5-11.1) 11/23/19 04:15 Absolute Neuts (auto) 3.6 K/mm3 (1.5-8.0) 11/23/19 04:15 Neutrophils % 53.8 % (42.8-82.8) D 11/23/19 04:15 Lymphocytes % 26.3 % (8-40) D 11/23/19 04:15 Monocytes % 10.4 % (3.8-10.2) H D 11/23/19 04:15 Eosinophils % 8.5 % (0-4.5) H D 11/23/19 04:15 Basophils % 1.0 % (0-2.0) D 11/23/19 04:15 Nucleated RBC % 0 % (0-0) 11/23/19 04:15 No leukocytosis CMP Sodium 141 mmol/L (136-145) 11/23/19 04:15 Potassium 4.8 mmol/L (3.5-5.1) 11/23/19 04:15 Chloride 111 mmol/L (98-107) H 11/23/19 04:15 Carbon Dioxide 25 mmol/L (21-32) 11/23/19 04:15 Anion Gap 5 MMOL/L (8-16) L 11/23/19 04:15 BUN 9.9 mg/dL (7-18) 11/23/19 04:15 Creatinine 1.0 mg/dL (0.55-1.3) 11/23/19 04:15 Est GFR (CKD-EPI)AfAm 80.47 11/23/19 04:15 Est GFR (CKD-EPI)NonAf 69.43 11/23/19 04:15 Random Glucose 107 mg/dL (74-106) H 11/23/19 04:15 Calcium 8.6 mg/dL (8.5-10.1) 11/23/19 04:15 Magnesium 2.0 mg/dL (1.8-2.4) 11/23/19 04:54 Total Bilirubin 0.3 mg/dL (0.2-1) 11/23/19 04:15 AST 12 U/L (15-37) L 11/23/19 04:15 ALT 15 U/L (13-61) 11/23/19 04:15 Alkaline Phosphatase 72 U/L (45-117) 11/23/19 04:15 Total Protein 6.8 g/dl (6.4-8.2) 11/23/19 04:15 Albumin 3.5 g/dl (3.4-5.0) 11/23/19 04:15 Electrolytes unremarkable Cr normal No transaminitis CXR without acute pathology, my impression EKG: rate 98, Qtc 436, NSR 11/23/19 06:09 Patient with improved exam, though still with scant wheezes: "I'm feeling 90% better" Given severity of exacerbation, admission offered to patient. She states she could not stay because she needs to take care of her daughter and her sister is having surgery tomorrow. Reliable to return if her condition worsens. Prescriptions sent to pharmacy Pulmonology referral Primary care referral Counseled smoking cessation Return precautions Stable for discharge 11/23/19 06:41 Past History - Past Medical History Allergies/Adverse Reactions: Allergies Allergy/AdvReac Type Severity Reaction Status Date / Time No Known Allergies Allergy Verified 11/23/19 03:33 Home Medications: Ambulatory Orders Albuterol Sulfate Inhaler - [Ventolin HFA Inhaler -] 2 inh PO Q6H 03/09/17 Levothyroxine [Synthroid -] 25 mcg PO DAILY 03/09/17 Budesonide/Formeterol Fumarate [SYMBICORT 160/4.5mcg -] 2 puff IH BID #1 inhaler 06/06/17 Albuterol 0.083% Nebulizer Irina [Ventolin 0.083% Nebulizer Soln -] 1 neb NEB Q4H PRN #60 vial 11/23/19 Albuterol Sulfate Inhaler - [Ventolin HFA Inhaler -] 1 - 2 inh PO Q4H #1 inhaler 11/23/19 Prednisone [Prednisone 50 MG TABLETS] 50 mg PO DAILY #4 tablet 11/23/19 Asthma: Yes COPD: No Thyroid Disease: Yes - Immunization History Immunization Up to Date: Yes - Psycho Social/Smoking Cessation Hx Smoking Status: Yes Smoking History: Never smoked Have you smoked in the past 12 months: Yes Number of Cigarettes Smoked Daily: 6 Hx Alcohol Use: No Drug/Substance Use Hx: No Substance Use Type: None *Physical Exam - Vital Signs Last Vital Signs Temp Pulse Resp BP Pulse Ox 97.9 F 102 H 18 133/76 99 11/23/19 03:33 11/23/19 03:33 11/23/19 03:33 11/23/19 03:33 11/23/19 03:33 ED Treatment Course - LABORATORY CBC & Chemistry Diagram: 11/23/19 04:15 11/23/19 04:15 Discharge - Discharge Information Problems reviewed: Yes Clinical Impression/Diagnosis: Asthma exacerbation Qualifiers: Asthma severity: unspecified severity Asthma persistence: unspecified Qualified Code(s): J45.901 - Unspecified asthma with (acute) exacerbation Condition: Improved Disposition: HOME - Additional Discharge Information Prescriptions: Albuterol 0.083% Nebulizer Irina [Ventolin 0.083% Nebulizer Soln -] 1 neb NEB Q4H PRN #60 vial PRN Reason: Asthma Albuterol Sulfate Inhaler - [Ventolin HFA Inhaler -] 1 - 2 inh PO Q4H #1 inhaler Prednisone [Prednisone 50 MG TABLETS] 50 mg PO DAILY #4 tablet - Follow up/Referral Referrals: Chato Burt MD [Staff Physician] - [facility] [place] [facility] [place] [Provider Group] - Patient Discharge Instructions Patient Printed Discharge Instructions: DI for Asthma -- Adult Additional Instructions: You were seen in the emergency department for an asthma exacerbation. We did blood work which was within normal limits. You received breathing treatment, steroids, and magnesium which improved your symptoms. Follow-up with a primary care provider within 72 hours to discuss this ED visit and to further evaluate your symptoms. Your workup is not complete until you do so. You have been referred to the [facility] in case you do not have a primary care doctor. Call and make an appointment at the number provided. We have referred you to a helper animal laboratory. Call and make an appointment. We sent prescriptions to your pharmacy: Prednisone 50mg: Take 1 tablet daily for the next four days Albuterol 0.083% Nebulizer Solution and inhaler: Take one treatment every four hours if you need it for your asthma Continue taking home medications as prescribed. Call for emergency medical services or go to the emergency room right away if any of the following occurs: Difficulty breathing, unrelieved by medications Tightness in chest, unrelieved by medications If you think you have an emergency, call for medical help right away. - Post Discharge Activity Work/Back to School Note: Back to Work
--- NOTE | 2019-11-23 04:00 | PDOC ---
Attending Attestation - Resident Resident Name: Brandon Kellyth - ED Attending Attestation I have performed the following: I have examined & evaluated the patient, The case was reviewed & discussed with the resident, I agree w/resident's findings & plan - HPI HPI: 11/23/19 06:10 see resident hpi - Physicial Exam PE: 11/23/19 06:10 see resident exam - Medical Decision Making 11/23/19 [id number] female with asthma exacerbation Patient improved after DuoNeb x3, magnesium 2 g and Solu-Medrol 125 On reevaluation patient has some residual wheezing, and additional nebulizer treatment being administered Plan on recommendation for admission in light of slow resolution/improvement
[2019-11-23] MEDS ORDERED: ALBUTEROL SO4 2.5/IPRATROPIUM 0.5 INH SOL 3 ML VIAL.NEB. NEB ONE ×2 (04:03→04:06)
[2019-11-23] MEDS ORDERED: methylPREDNISolone NA SUCC 125 MG/2 ML VIAL IVPUSH ONE (04:03)
[2019-11-23] MEDS ORDERED: methylPREDNISolone NA SUCC 125 MG/2 ML VIAL ONE (04:06)
[2019-11-23] MEDS ORDERED: MAGNESIUM SULF 50% (8.12 MEQ/2 ML-1 GM VIAL) IVPB ONE (04:30)
[2019-11-23 04:32] LABS: EOS % 8.5 % (0-4.5); HEMATOCRIT 34.6 % (32.4-45.2); LYMPH % 26.3 % (8-40); MCH 26.2 pg (25.7-33.7); MCHC 31.8 g/dl (32.0-36.0); MEAN CELL VOLUME 82.4 fl (80-96); MEAN PLT VOLUME 9.1 fl (7.5-11.1); MONO % 10.4 % (3.8-10.2); NEUT % 53.8 % (42.8-82.8); PLATELET COUNT 231 K/MM3 (134-434); RBC 4.19 M/mm3 (3.60-5.2); RDW 16.2 % (11.6-15.6); WHITE BLOOD COUNT 6.7 K/mm3 (4.0-10.0)
[2019-11-23] MEDS ORDERED: MAGNESIUM SULF 50% (8.12 MEQ/2 ML-1 GM VIAL) ONE (04:46)
[2019-11-23 04:56] LABS: ALBUMIN 3.5 g/dl (3.4-5.0); BILIRUBIN,TOTAL 0.3 mg/dL (0.2-1); BLOOD UREA NITROGEN 9.9 mg/dL (7-18); CALCIUM 8.6 mg/dL (8.5-10.1); POTASSIUM 4.8 mmol/L (3.5-5.1); TOT PROT 6.8 g/dl (6.4-8.2)
[2019-11-23 06:29] VITALS: BP 134/75; PULSE 99
--- NOTE | 2019-11-23 09:17 | EKG ---
Test Reason : Blood Pressure : / mmHG Vent. Rate : 098 BPM Atrial Rate : 098 BPM P-R Int : 166 ms QRS Dur : 082 ms QT Int : 342 ms P-R-T Axes : 083 -15 060 degrees QTc Int : 436 ms NORMAL SINUS RHYTHM NORMAL ECG WHEN COMPARED WITH ECG OF 03-NOV-2019 13:12, NO SIGNIFICANT CHANGE WAS FOUND Confirmed by Kaden Ortiz MD ([id number]) on 11/23/2019 9:16:44 AM Referred By: Confirmed By:Kaden Ortiz MD
== END 2019-11-23 06:56 | disposition home or self-care (01) ==
LOC: JER 03:24
PROC: 3E0F7GC Introduction of Other Therapeutic Substance into Respiratory Tract, Via Natural or Artificial Opening (ICD-10-PCS; principal; 2019-11-23)
PROC: 3E033GC Introduction of Other Therapeutic Substance into Peripheral Vein, Percutaneous Approach (ICD-10-PCS; 2019-11-23)
PROC: 3E0333Z Introduction of Anti-inflammatory into Peripheral Vein, Percutaneous Approach (ICD-10-PCS; 2019-11-23)
DX: J45.901 Unspecified asthma with (acute) exacerbation (principal); E03.9 Hypothyroidism, unspecified; L30.9 Dermatitis, unspecified
CPT/HCPCS: 36415; 71046-TC-FY; 80053; 83735; 85025; 93005; 93010; 99284-25

== ENCOUNTER 2019-12-03 19:12 | Inpatient (IN) | payer SELFPAY ==
[2019-12-03] MEDS ORDERED: IPRATROPIUM BR 0.02% 0.5 MG/2.5 ML VIAL.NEB. NEB ONE (19:40)
[2019-12-03] MEDS ORDERED: ALBUTEROL SO4 0.083% IH SOL 2.5 MG/3 ML VIAL.NEB. NEB ONE ×3 (19:40→20:18)
[2019-12-03] MEDS ORDERED: DEXAMETHASONE SOD PHOSPHATE 10 MG/1 ML VIAL ONE (19:40)
--- NOTE | 2019-12-03 20:08 | PDOC ---
History of Present Illness - General Chief Complaint: Asthma Stated Complaint: ASTHM History Source: Patient Exam Limitations: No Limitations - History of Present Illness Initial Comments: 12/03/19 23:24 44 yo F with a hx of asthma (last exacerbation mid November requiring steroids; never intubated) and hypothyroidism (inconsistent use of levothyroxine) presents to the emergency department with SOB. 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 The patient stated that throughout the day she was feeling acute worsening of her SOB and was unable to ambulate without improvement. She has been using her albuterol nebulizer without improvement. Denies the following: fevers, chills, chest pain , nausea, vomiting, abdominal pain, dysuria, hematuria, diarrhea, and leg pain/ swelling. Allergies: NKDA Past History - Past Medical History Allergies/Adverse Reactions: Allergies Allergy/AdvReac Type Severity Reaction Status Date / Time No Known Allergies Allergy Verified 12/03/19 19:33 Home Medications: Ambulatory Orders Albuterol Sulfate Inhaler - [Ventolin HFA Inhaler -] 2 inh PO Q6H 03/09/17 Levothyroxine [Synthroid -] 25 mcg PO DAILY 03/09/17 Budesonide/Formeterol Fumarate [SYMBICORT 160/4.5mcg -] 2 puff IH BID #1 inhaler 03/11/17 Albuterol 0.083% Nebulizer Irina [Ventolin 0.083% Nebulizer Soln -] 1 neb NEB Q4H PRN #60 vial 11/23/19 Albuterol Sulfate Inhaler - [Ventolin HFA Inhaler -] 1 - 2 inh PO Q4H #1 inhaler 11/23/19 Asthma: Yes COPD: No Thyroid Disease: Yes - Immunization History Immunization Up to Date: Yes - Psycho Social/Smoking Cessation Hx Smoking Status: Yes Smoking History: Never smoked Have you smoked in the past 12 months: Yes Number of Cigarettes Smoked Daily: 6 Hx Alcohol Use: No Drug/Substance Use Hx: No Substance Use Type: None Review of Systems - Review of Systems Able to Perform ROS?: Yes Is the patient limited Yi proficient: No Constitutional: No: Chills, Diaphoresis, Fever, Weakness HEENTM: No: Eye Pain, Ear Pain, Nose Pain, Throat Pain, Mouth Pain Respiratory: Yes: Cough, Shortness of Breath, SOB with Exertion, SOB at Rest. No: Hemoptysis Cardiac (ROS): No: Chest Pain, Lightheadedness, Palpitations, Chest Tightness ABD/GI: No: Constipated, Diarrhea, Nausea, Rectal Bleeding, Vomiting, Tarry Stools : No: Burning, Dysuria, Hematuria Musculoskeletal: No: Back Pain, Joint Pain, Neck Pain Integumentary: No: Bruising, Erythema, Rash Neurological: No: Headache, Numbness, Tingling, Tremors Psychiatric: No: Change in Appetite Endocrine: No: Unexplained Weight Gain Hematologic/Lymphatic: No: Anemia *Physical Exam - Vital Signs Last Vital Signs Temp Pulse Resp BP Pulse Ox 100 H 22 H 130/88 100 12/03/19 19:34 12/03/19 19:34 12/03/19 19:34 12/03/19 19:34 - Physical Exam General Appearance: Yes: Nourished, Appropriately Dressed, Obese. No: Apparent Distress, Intoxicated HEENT: positive: EOMI, TALA, Normal Voice, Symmetrical, Pharynx Normal, Hearing Grossly Normal. negative: Pale Conjunctivae, Scleral Icterus (R), Scleral Icterus (L), Muffled/Hoarse voice, Pharyngeal Erythema, Tonsillar Exudate, Tonsillar Erythema, Nasal Congestion, Rhinorrhea, Sinus Tenderness, Excessive drooling Neck: positive: Trachea midline, Supple. negative: Tender, Lymphadenopathy (R) , Lymphadenopathy (L), Tender lateral, Tender midline Respiratory/Chest: positive: Decreased Breath Sounds, Rhonchi, Wheezing. negative: Chest Tender, Lungs Clear, Normal Breath Sounds, Respiratory Distress , Accessory Muscle Use Cardiovascular: positive: Regular Rhythm, Regular Rate, S1, S2. negative: Systolic Murmur Gastrointestinal/Abdominal: positive: Normal Bowel Sounds, Flat, Soft. negative : Tender, Distended, Guarding, Rebound Musculoskeletal: positive: Normal Inspection. negative: CVA Tenderness, Vertebral Tenderness Extremity: positive: Normal Capillary Refill, Normal Inspection, Normal Range of Motion. negative: Tender, Swelling, Calf Tenderness Integumentary: positive: Normal Color, Dry, Warm. negative: Swelling, Ecchymosis Neurologic: positive: Fully Oriented, Alert, Normal Mood/Affect. negative: EOM Palsy, Sensory Deficit ED Treatment Course - LABORATORY CBC & Chemistry Diagram: 12/03/19 20:30 12/03/19 20:30 Medical Decision Making - Medical Decision Making 44 yo F with a hx of asthma (last exacerbation mid November requiring steroids; never intubated) and hypothyroidism (inconsistent use of levothyroxine) presents to the emergency department with SOB. Initial vitals; Initial Vital Signs Pulse Resp BP Pulse Ox 100 H 22 H 130/88 100 12/03/19 19:34 12/03/19 19:34 12/03/19 19:34 12/03/19 19:34 WOrk up: patient presents to the emergency department with SOB that has been ongoing since Friday night into morning. Based on the history, she has poorly controlled asthma exacerbations with 3 including this event within the past 4 weeks. Thus, the patient needs CXR to rule out infectious etiology possibly causing exacerbation. will obtain labs to rule out metabolic and infectious etiology. Laboratory Tests 12/03/19 12/03/19 12/03/19 20:30 20:30 20:30 WBC 10.4 H RBC 4.26 Hgb 11.1 Hct 35.0 MCV 82.1 MCH 26.1 MCHC 31.8 L RDW 16.2 H Plt Count 321 D MPV 9.3 Absolute Neuts (auto) 8.9 H Neutrophils % 85.2 H D Lymphocytes % 9.7 D Monocytes % 2.5 L Eosinophils % 2.1 Basophils % 0.5 Nucleated RBC % 0 Sodium 140 Potassium 4.0 Chloride 108 H Carbon Dioxide 27 Anion Gap 5 L BUN 9.9 Creatinine 0.9 Est GFR (CKD-EPI)AfAm 91.40 Est GFR (CKD-EPI)NonAf 78.86 Random Glucose 121 H Calcium 8.9 Magnesium 2.9 H Total Bilirubin 0.1 L AST 18 ALT 17 Alkaline Phosphatase 70 Creatine Kinase 262 H Creatine Kinase Index 0.7 CK-MB (CK-2) 2.0 Troponin I < 0.02 Total Protein 7.0 Albumin 3.8 Influenza A (Rapid) Influenza B (Rapid) 12/03/19 20:30 WBC RBC Hgb Hct MCV MCH MCHC RDW Plt Count MPV Absolute Neuts (auto) Neutrophils % Lymphocytes % Monocytes % Eosinophils % Basophils % Nucleated RBC % Sodium Potassium Chloride Carbon Dioxide Anion Gap BUN Creatinine Est GFR (CKD-EPI)AfAm Est GFR (CKD-EPI)NonAf Random Glucose Calcium Magnesium Total Bilirubin AST ALT Alkaline Phosphatase Creatine Kinase Creatine Kinase Index CK-MB (CK-2) Troponin I Total Protein Albumin Influenza A (Rapid) Negative Influenza B (Rapid) Negative interventions: patient received 10 mg of dexamethasone and 4x amps of duonebs and 2 mg of magnesium by EMS. The patient was given an additional 4 amps of albuterol in the department. Upon re-assessment in the emergency department, she had continued wheezing with expiration and rhonchi with symptomatic SOB. CXR was negative for acute infiltrate. Patient will need admission for asthma exacerbation and will need optimization. Patient has continued wheezing on examination despite treatments. Discharge - Discharge Information Problems reviewed: Yes Clinical Impression/Diagnosis: Asthma - Follow up/Referral - Patient Discharge Instructions - Post Discharge Activity
[2019-12-03 21:04] LABS: BASO % 0.5 % (0-2.0); EOS % 2.1 % (0-4.5); HEMOGLOBIN 11.1 GM/dL (10.7-15.3); LYMPH % 9.7 % (8-40); MCH 26.1 pg (25.7-33.7); MCHC 31.8 g/dl (32.0-36.0); MEAN CELL VOLUME 82.1 fl (80-96); MEAN PLT VOLUME 9.3 fl (7.5-11.1); MONO % 2.5 % (3.8-10.2); NEUT % 85.2 % (42.8-82.8); PLATELET COUNT 321 K/MM3 (134-434); RBC 4.26 M/mm3 (3.60-5.2); RDW 16.2 % (11.6-15.6); WHITE BLOOD COUNT 10.4 K/mm3 (4.0-10.0)
[2019-12-03 21:37] LABS: ALBUMIN 3.8 g/dl (3.4-5.0); BILIRUBIN,TOTAL 0.1 mg/dL (0.2-1); BLOOD UREA NITROGEN 9.9 mg/dL (7-18); CALCIUM 8.9 mg/dL (8.5-10.1); CREATININE 0.9 mg/dL (0.55-1.3)
[2019-12-03 21:38] LABS: MAGNESIUM 2.9 mg/dL (1.8-2.4)
--- NOTE | 2019-12-04 01:24 | PDOC ---
Documentation entered by Eva Wallace SCRIBE, acting as scribe for Len Singleton DO. Len Singleton DO: This documentation has been prepared by the Rodrigo bernard Adrianna, SCRIBE, under my direction and personally reviewed by me in its entirety. I confirm that the documentation accurately reflects all work, treatment, procedures, and medical decision making performed by me. Attending Attestation - Resident Resident Name: Alexis Chambers - [facility] HPI: The patient is a 44 year old female, with a history of persistent asthma since childhood, here today with 2-3 days of progressively worsening shortness of breath. Patient has had a history of persistent asthma since childhood, never intubated. Today she called EMS for shortness of breath. Patient has had 3 duonebs en route, and was given 10 mgs of decadron and 2 mg of magnesium, with mild relief of symptoms. She states she still feels tightness in her chest, which feels like her asthma. No fever, admits to cough and chills. 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 - Physicial Exam PE: GENERAL: Awake and alert. No acute distress. Speaking in full sentences. Afebrile, not diaphoretic. Well-appearing. HEENT: Normocephalic, atraumatic. PERRLA, EOMI. No conjunctival pallor. Sclera are non-icteric. Moist mucous membranes. Oropharynx is clear. NECK: Supple. Full ROM. No JVD. Carotid pulses 2+ and symmetric, without bruits. No thyromegaly. No lymphadenopathy. CARDIOVASCULAR: Regular rate and rhythm. No murmurs, rubs, or gallops. Distal pulses are 2+ and symmetric. PULMONARY: Diffuse wheezing throughout lung lopez. Mildly tachypneic. No evidence of respiratory distress. Lungs clear to auscultation bilaterally. No rales or rhonchi. ABDOMINAL: Soft. Non-tender. Non-distended. No rebound or guarding. No organomegaly. Normoactive bowel sounds. MUSCULOSKELETAL: Normal range of motion at all joints. No bony deformities or tenderness. No CVA tenderness. EXTREMITIES: No cyanosis. No clubbing. No edema. No calf tenderness. SKIN: Warm and dry. Normal capillary refill. No rashes. No jaundice. NEUROLOGICAL: Alert, awake, appropriate. Normal speech. PSYCHIATRIC: Cooperative. Good eye contact. Appropriate mood and affect. - Medical Decision Making Assessment and Plan: 44 year old female here with persistent asthma exacerbation. Will evaluate for pneumonia versus bronchitis versus influenza. Plan for chest X-Ray, flu swab. Continuous nebulizer treatments, close monitoring, and reassessment. Reassessment: Chest X-Ray is negative for pneumonia. Trachea is midline. Normal mediastinum. No pneumothorax. No indications for antibiotics at this time. Patient has persistent wheezing, without respiratory distress. She has bilateral air movement. Patient with persistent asthma, will admit for persistent asthma. Plan for overnight respiratory monitoring and nebulizer treatments. Heart Score/ECG Review - ECG Impressions Comment:: ECG is normal sinus rhythm at 97. Normal axis and intervals. No ischemia. Performed at 20:38.
[2019-12-04] MEDS: ALBUTEROL SO4 2.5/IPRATROPIUM 0.5 INH SOL 3 ML VIAL.NEB. NEB PRN ×2 (01:40→10:00)
[2019-12-04] MEDS ORDERED: ALBUTEROL SO4 2.5/IPRATROPIUM 0.5 INH SOL 3 ML VIAL.NEB. NEB ONE (01:41)
[2019-12-04] MEDS ORDERED: methylPREDNISolone NA SUCC 40 MG/1 ML VIAL ONE (02:08)
[2019-12-04] MEDS: methylPREDNISolone NA SUCC 40 MG/1 ML VIAL IVPUSH SCH ×3 (02:14→17:48)
[2019-12-04 02:47] VITALS: BMI 45.7
[2019-12-04] MEDS: LEVOTHYROXINE NA 25 MCG TABLET (FP) PO SCH (06:48)
[2019-12-04 08:12] LABS: BASO % 0.1 % (0-2.0); HEMATOCRIT 33.3 % (32.4-45.2); HEMOGLOBIN 10.7 GM/dL (10.7-15.3); LYMPH % 6.9 % (8-40); MCH 26.2 pg (25.7-33.7); MCHC 32.3 g/dl (32.0-36.0); MEAN CELL VOLUME 81.2 fl (80-96); MEAN PLT VOLUME 9.1 fl (7.5-11.1); MONO % 1.2 % (3.8-10.2); NEUT % 91.8 % (42.8-82.8); PLATELET COUNT 321 K/MM3 (134-434); RDW 16.2 % (11.6-15.6); WHITE BLOOD COUNT 8.7 K/mm3 (4.0-10.0)
[2019-12-04] MEDS ORDERED: PT OWN MED DRAWER 7, Y5N ONE ×2 (08:45→10:44)
[2019-12-04] MEDS ORDERED: cefTRIAXone SODIUM 1 GM VIAL ONE (08:45)
[2019-12-04] MEDS ORDERED: DEXTROSE 5%-WATER - 50 ML IVPB ONE (08:45)
[2019-12-04] MEDS: HEPARIN NA (PORCINE) 5,000 UNITS/ML 1ML VIAL SQ SCH ×2 (09:01→21:12)
[2019-12-04 09:06] LABS: ALBUMIN 3.6 g/dl (3.4-5.0); BILIRUBIN,TOTAL 0.7 mg/dL (0.2-1); BLOOD UREA NITROGEN 11.6 mg/dL (7-18); POTASSIUM 4.7 mmol/L (3.5-5.1)
[2019-12-04] MEDS ORDERED: FLU VACCINE QUAD 60 MCG/0.5 ML (MDV 19-20) IM ONE (10:00)
[2019-12-04] MEDS ORDERED: CEFTRIAXONE 1 GM in DEXTROSE 5%-WATER - 50 ML IVPB SCH (10:00)
[2019-12-04] MEDS ORDERED: PNEUMOC 13-VAL CONJ-DIP CRM/PF 0.5 ML DISP.SYRIN IM ONE (10:00)
[2019-12-04] MEDS: BUDESONIDE/FORMETEROL FUMARATE 160/4.5 mcg INHALER IH SCH ×2 (10:48→21:13)
[2019-12-04 11:17] LABS: ANISOCYTOSIS 0; MACROCYTOSIS 0; PLATELET ESTIMATE NORMAL
--- NOTE | 2019-12-04 11:23 | CON.PULM ---
Consult Consult Specialty:: PULM/CCM Referred by:: Hospitalist Reason for Consultation:: SOB - History of Present Illness Chief Complaint: SOB History of Present Illness: 44 F, Mild Persistent Asthma (not steroid dependent, unknown PEF, never intubated). Last AE was mid-November. Claims she did not receive maintenance medications. Smokes about 5 cigarettes per day and occasional MJ. No vaping. No travel history or sick contacts. (+) history consistent with OSAS and Insomnia. 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 No night sweats or hemoptysis. CXR: no acute process - History Source History Provided By: Patient Limitations to Obtaining History: No Limitations - Past Medical History Pulmonary: Yes: Asthma, Bronchitis. No: Cancer, COPD, O2 Dependent, Pneumonia, Previously Intubated, Pulmonary Embolus, Pulmonary Fibrosis, Sleep Apnea Gastrointestinal: Yes: GERD ...LMP: 11/29/19 ...: No - Alcohol/Substance Use Hx Alcohol Use: Yes (rarely) - Smoking History Smoking history: Former smoker Have you smoked in the past 12 months: Yes Aproximately how many cigarettes per day: 6 If you are a former smoker, when did you quit?: November 20, 2019 Home Medications - Allergies Allergies/Adverse Reactions: Allergies Allergy/AdvReac Type Severity Reaction Status Date / Time No Known Allergies Allergy Verified 12/03/19 19:33 - Home Medications Home Medications: Ambulatory Orders Albuterol Sulfate Inhaler - [Ventolin HFA Inhaler -] 2 inh PO Q6H 03/09/17 Levothyroxine [Synthroid -] 25 mcg PO DAILY 03/09/17 Budesonide/Formeterol Fumarate [SYMBICORT 160/4.5mcg -] 2 puff IH BID #1 inhaler 03/11/17 Albuterol 0.083% Nebulizer Irina [Ventolin 0.083% Nebulizer Soln -] 1 neb NEB Q4H PRN #60 vial 11/23/19 Albuterol Sulfate Inhaler - [Ventolin HFA Inhaler -] 1 - 2 inh PO Q4H #1 inhaler 11/23/19 Review of Systems - Review of Systems Constitutional: denies: Chills, Fever, Malaise, Night Sweats Eyes: reports: No Symptoms HENT: reports: No Symptoms Neck: reports: No Symptoms Cardiovascular: reports: Shortness of Breath. denies: Chest Pain, Edema, Palpitations Respiratory: reports: Cough, Snoring, SOB, SOB on Exertion, Wheezing. denies: Exercise Intolerance, Hemoptysis, Orthopnea, PND Gastrointestinal: reports: No Symptoms Genitourinary: reports: No Symptoms Breasts: reports: No Symptoms Reported Musculoskeletal: reports: No Symptoms Integumentary: reports: No Symptoms Neurological: reports: No Symptoms Endocrine: reports: No Symptoms Hematology/Lymphatic: reports: No Symptoms Psychiatric: reports: No Symptoms Physical Exam Vital Sings: Vital Signs Temperature 97.5 F L 12/04/19 02:24 Pulse Rate 100 H 12/04/19 05:00 Respiratory Rate 20 12/04/19 05:00 Blood Pressure 118/74 12/04/19 05:00 O2 Sat by Pulse Oximetry (%) 98 12/04/19 05:00 Constitutional: Yes: No Distress, Calm, Obese Eyes: Yes: Conjunctiva Clear, EOM Intact HENT: Yes: Atraumatic, Normocephalic Neck: Yes: Supple, Trachea Midline Cardiovascular: Yes: Regular Rate and Rhythm Respiratory: Yes: Cough, Diminished, Wheezes. No: Accessory Muscle Use, Rales, Rhonchi, SOB, SOB on Exertion, Stridor, Tachypnea ...Inspection: Yes: WNL ...Clubbing: No Gastrointestinal: Yes: Normal Bowel Sounds, Soft, Abdomen, Obese Renal/: Yes: WNL Musculoskeletal: Yes: WNL Extremities: Yes: WNL Edema: No Peripheral Pulses WNL: Yes Integumentary: Yes: WNL Neurological: Yes: WNL, Alert, Oriented ...Motor Strength: WNL Psychiatric: Yes: WNL, Alert, Oriented Labs: CBC, BMP 12/04/19 07:00 12/04/19 07:00 Imaging - Results Chest X-ray: Report Reviewed, Image Reviewed Problem List - Problems (1) GERD (gastroesophageal reflux disease) Code(s): K21.9 - GASTRO-ESOPHAGEAL REFLUX DISEASE WITHOUT ESOPHAGITIS (2) Asthma Code(s): J45.909 - UNSPECIFIED ASTHMA, UNCOMPLICATED (3) Allergies Code(s): T78.40XA - ALLERGY, UNSPECIFIED, INITIAL ENCOUNTER Qualifiers: Encounter type: initial encounter Qualified Code(s): T78.40XA - Allergy, unspecified, initial encounter (4) Hypothyroid Code(s): E03.9 - HYPOTHYROIDISM, UNSPECIFIED (5) Morbid obesity Code(s): E66.01 - MORBID (SEVERE) OBESITY DUE TO EXCESS CALORIES (6) Tobacco abuse Code(s): Z72.0 - TOBACCO USE Assessment/Plan Medrol BD TX Standing and PRN DC Rocephin No smoking was discussed at length Outpatient PFTs Sleep Screen Sleep hygiene discussed VTE prophylaxis Will follow Thank you. Dr Mariscal
[2019-12-04] MEDS ORDERED: ALBUTEROL SO4 0.083% IH SOL 2.5 MG/3 ML VIAL.NEB. NEB PRN (11:41)
[2019-12-04] MEDS: AZITHROMYCIN IVPB 250 MG in DEXTROSE 5%-WATER - 250 ML IVPB SCH (11:55)
[2019-12-04] MEDS: ALBUTEROL SO4 2.5/IPRATROPIUM 0.5 INH SOL 3 ML VIAL.NEB. NEB SCH ×3 (13:00→19:51)
--- NOTE | 2019-12-04 13:28 | EKG ---
Test Reason : Blood Pressure : / mmHG Vent. Rate : 097 BPM Atrial Rate : 097 BPM P-R Int : 162 ms QRS Dur : 082 ms QT Int : 348 ms P-R-T Axes : 083 007 061 degrees QTc Int : 441 ms NORMAL SINUS RHYTHM POSSIBLE LEFT ATRIAL ENLARGEMENT WHEN COMPARED WITH ECG OF 23-NOV-2019 05:47, NO SIGNIFICANT CHANGE WAS FOUND Confirmed by GABRIELE BAUER MD ([id number]) on 12/04/2019 1:27:40 PM Referred By: Confirmed By:GABRIELE BAUER MD
[2019-12-04] MEDS ORDERED: ACETAMINOPHEN 325 MG TABLET (FP) PO PRN (14:07)
--- NOTE | 2019-12-04 16:51 | HP ---
Admitting History and Physical - Primary Care Physician PCP: María Hui - Admission History of Present Illness: 44 yo F with a hx of asthma (last exacerbation mid November requiring steroids; never intubated) and hypothyroidism (inconsistent use of levothyroxine) presents to the emergency department with SOB. 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 The patient stated that throughout the day she was feeling acute worsening of her SOB and was unable to ambulate without improvement. She has been using her albuterol nebulizer without improvement. Denies the following: fevers, chills, chest pain , nausea, vomiting, abdominal pain, dysuria, hematuria, diarrhea, and leg pain/ swelling. - Past Medical History Pulmonary: Yes: Asthma, Bronchitis, COPD. No: Cancer, O2 Dependent, Pneumonia, Previously Intubated, Pulmonary Embolus, Pulmonary Fibrosis, Sleep Apnea Gastrointestinal: Yes: GERD ...LMP: 11/29/19 ...: No - Smoking History Smoking history: Former smoker Have you smoked in the past 12 months: Yes Aproximately how many cigarettes per day: 6 If you are a former smoker, when did you quit?: November 20, 2019 - Alcohol/Substance Use Hx Alcohol Use: Yes (rarely) Home Medications - Allergies Allergies/Adverse Reactions: Allergies Allergy/AdvReac Type Severity Reaction Status Date / Time No Known Allergies Allergy Verified 12/03/19 19:33 - Home Medications Home Medications: Ambulatory Orders Albuterol Sulfate Inhaler - [Ventolin HFA Inhaler -] 2 inh PO Q6H 03/09/17 Levothyroxine [Synthroid -] 25 mcg PO DAILY 03/09/17 Budesonide/Formeterol Fumarate [SYMBICORT 160/4.5mcg -] 2 puff IH BID #1 inhaler 03/11/17 Albuterol 0.083% Nebulizer Irina [Ventolin 0.083% Nebulizer Soln -] 1 neb NEB Q4H PRN #60 vial 11/23/19 Albuterol Sulfate Inhaler - [Ventolin HFA Inhaler -] 1 - 2 inh PO Q4H #1 inhaler 11/23/19 Physical Examination Vital Signs: Vital Signs Temperature 98 F 12/04/19 14:45 Pulse Rate 98 H 02/29/20 14:45 Respiratory Rate 20 12/04/19 14:45 Blood Pressure 107/69 12/04/19 14:45 O2 Sat by Pulse Oximetry (%) 98 12/04/19 09:00 Constitutional: Yes: No Distress HENT: Yes: Atraumatic Neck: Yes: Supple Cardiovascular: Yes: Regular Rate and Rhythm Respiratory: Yes: Rhonchi, Wheezes Gastrointestinal: Yes: Normal Bowel Sounds Extremities: Yes: WNL Edema: No Neurological: Yes: Alert, Oriented Labs: CBC, BMP 12/04/19 07:00 12/04/19 07:00 Problem List - Problems (1) Asthma Assessment/Plan: IV STEROIDS DUO NEBS ABX PULMONARY ON BOARD Code(s): J45.909 - UNSPECIFIED ASTHMA, UNCOMPLICATED (2) GERD (gastroesophageal reflux disease) Code(s): K21.9 - GASTRO-ESOPHAGEAL REFLUX DISEASE WITHOUT ESOPHAGITIS (3) Asthma exacerbation Code(s): J45.901 - UNSPECIFIED ASTHMA WITH (ACUTE) EXACERBATION Qualifiers: Asthma severity: unspecified severity Asthma persistence: unspecified Qualified Code(s): J45.901 - Unspecified asthma with (acute) exacerbation (4) Hypothyroid Assessment/Plan: ON MEDS Code(s): E03.9 - HYPOTHYROIDISM, UNSPECIFIED (5) Morbid obesity Code(s): E66.01 - MORBID (SEVERE) OBESITY DUE TO EXCESS CALORIES (6) Tobacco abuse Assessment/Plan: appliance counselor to stop smoking will put her on nicotine patch Code(s): Z72.0 - TOBACCO USE Assessment/Plan Laboratory Tests 12/03/19 12/03/19 12/03/19 20:30 20:30 20:30 WBC 10.4 H RBC 4.26 Hgb 11.1 Hct 35.0 MCV 82.1 MCH 26.1 MCHC 31.8 L RDW 16.2 H Plt Count 321 D MPV 9.3 Absolute Neuts (auto) 8.9 H Neutrophils % 85.2 H D Neutrophils % (Manual) Band Neutrophils % Lymphocytes % 9.7 D Lymphocytes % (Manual) Monocytes % 2.5 L Monocytes % (Manual) Eosinophils % 2.1 Eosinophils % (Manual) Basophils % 0.5 Basophils % (Manual) Myelocytes % (Man) Promyelocytes % (Man) Blast Cells % (Manual) Nucleated RBC % 0 Metamyelocytes Hypochromia Platelet Estimate Polychromasia Poikilocytosis Anisocytosis Microcytosis Macrocytosis Sodium 140 Potassium 4.0 Chloride 108 H Carbon Dioxide 27 Anion Gap 5 L BUN 9.9 Creatinine 0.9 Est GFR (CKD-EPI)AfAm 91.40 Est GFR (CKD-EPI)NonAf 78.86 Random Glucose 121 H Calcium 8.9 Magnesium 2.9 H Total Bilirubin 0.1 L AST 18 ALT 17 Alkaline Phosphatase 70 Creatine Kinase 262 H Creatine Kinase Index 0.7 CK-MB (CK-2) 2.0 Troponin I < 0.02 Total Protein 7.0 Albumin 3.8 Influenza A (Rapid) Influenza B (Rapid) 12/03/19 12/04/19 12/04/19 20:30 07:00 07:00 WBC 8.7 RBC 4.10 Hgb 10.7 Hct 33.3 MCV 81.2 MCH 26.2 MCHC 32.3 RDW 16.2 H Plt Count 321 MPV 9.1 Absolute Neuts (auto) 8.0 Neutrophils % 91.8 H Neutrophils % (Manual) 95.0 H Band Neutrophils % 0.0 Lymphocytes % 6.9 L D Lymphocytes % (Manual) 4.0 L Monocytes % 1.2 L Monocytes % (Manual) 0 L Eosinophils % 0.0 D Eosinophils % (Manual) 0.0 Basophils % 0.1 Basophils % (Manual) 1.0 Myelocytes % (Man) 0 Promyelocytes % (Man) 0 Blast Cells % (Manual) 0 Nucleated RBC % 0 Metamyelocytes 0 Hypochromia 0 Platelet Estimate Normal Polychromasia 1+ Poikilocytosis 0 Anisocytosis 0 Microcytosis 0 Macrocytosis 0 Sodium 136 Potassium 4.7 Chloride 105 Carbon Dioxide 24 Anion Gap 7 L BUN 11.6 Creatinine 1.0 Est GFR (CKD-EPI)AfAm 80.47 Est GFR (CKD-EPI)NonAf 69.43 Random Glucose 152 H Calcium 9.0 Magnesium Total Bilirubin 0.7 AST 12 L ALT 16 Alkaline Phosphatase 69 Creatine Kinase Creatine Kinase Index CK-MB (CK-2) Troponin I Total Protein 7.0 Albumin 3.6 Influenza A (Rapid) Negative Influenza B (Rapid) Negative Active Medications Generic Name Dose Route Start Last Admin Trade Name Freq PRN Reason Stop Dose Admin Acetaminophen 650 mg 12/04/19 14:07 Tylenol - PO Q6H PRN FEVER Albuterol Sulfate 1 amp 12/04/19 11:41 Ventolin 0.083% Nebulizer Soln - NEB Q4H PRN SHORT OF BREATH/WHEEZING Albuterol/Ipratropium 1 amp 12/04/19 12:00 12/04/19 13:00 Duoneb - NEB 1 amp RQID CIRO Administration Budesonide/Formoterol Fumarate 2 puff 12/04/19 10:00 12/04/19 10:48 Symbicort 160/4.5mcg - IH 2 puff BID CIRO Administration Heparin Sodium (Porcine) 5,000 unit 12/04/19 10:00 12/04/19 09:01 Heparin - SQ 5,000 unit BID CIRO Administration Azithromycin 250 mg/ Dextrose 250 mls @ 250 mls/hr 12/04/19 10:00 12/04/19 11 :55 IVPB 250 mls/hr DAILY CIRO Administration Levothyroxine Sodium 25 mcg 12/04/19 07:00 12/04/19 06:48 Synthroid - PO 25 mcg DAILY@0700 CIRO Administration Methylprednisolone Sodium Succinate 40 mg 12/04/19 02:00 12/04/19 09:01 Solu-Medrol - IVPUSH 40 mg Q8H-IV CIRO Administration Montelukast Sodium 10 mg 12/04/19 22:00 Singulair - PO HS CIRO COVERING GLEN[place] HUI
[2019-12-04] MEDS ORDERED: MONTELUKAST NA 10 MG TABLET PO SCH (22:00)
[2019-12-05] MEDS: methylPREDNISolone NA SUCC 40 MG/1 ML VIAL IVPUSH SCH ×2 (03:47→09:49)
[2019-12-05] MEDS: LEVOTHYROXINE NA 25 MCG TABLET (FP) PO SCH (06:03)
[2019-12-05] MEDS: NICOTINE 21 MG/24 HOURS TOPICAL PATCH TD SCH ×3 (06:07→09:53)
[2019-12-05] MEDS: ALBUTEROL SO4 2.5/IPRATROPIUM 0.5 INH SOL 3 ML VIAL.NEB. NEB SCH ×2 (08:37→14:00)
[2019-12-05] MEDS ORDERED: PT OWN MED DRAWER 7, Y5N ONE (09:44)
[2019-12-05] MEDS: HEPARIN NA (PORCINE) 5,000 UNITS/ML 1ML VIAL SQ SCH (09:49)
[2019-12-05] MEDS: BUDESONIDE/FORMETEROL FUMARATE 160/4.5 mcg INHALER IH SCH (09:54)
[2019-12-05] MEDS: AZITHROMYCIN IVPB 250 MG in DEXTROSE 5%-WATER - 250 ML IVPB SCH (10:40)
--- NOTE | 2019-12-05 11:32 | PN ---
Progress Note (short form) - Note Progress Note: Feels better today. PEF: 320. Intake & Output 12/02/19 12/03/19 12/04/19 12/05/19 23:59 23:59 23:59 23:59 Intake Total 1520 300 Balance 1520 300 Weight 260 lb 2.327 oz 266 lb 5 oz 266 lb 7 oz Last Vital Signs Temp Pulse Resp BP Pulse Ox 98.0 F 86 20 154/96 98 12/05/19 06:00 12/05/19 06:00 12/05/19 06:00 12/05/19 06:00 12/04/19 09:00 Active Medications Acetaminophen (Tylenol -) 650 mg PO Q6H PRN PRN Reason: FEVER Last Admin: 12/04/19 17:09 Dose: 650 mg Albuterol Sulfate (Ventolin 0.083% Nebulizer Soln -) 1 amp NEB Q4H PRN PRN Reason: SHORT OF BREATH/WHEEZING Albuterol/Ipratropium (Duoneb -) 1 amp NEB RQID [facility] Last Admin: 12/05/19 08:37 Dose: 1 amp Budesonide/Formoterol Fumarate (Symbicort 160/4.5mcg -) 2 puff IH BID [facility] Last Admin: 12/05/19 09:54 Dose: 2 puff Heparin Sodium (Porcine) (Heparin -) 5,000 unit SQ BID [facility] Last Admin: 12/05/19 09:49 Dose: 5,000 unit Azithromycin 250 mg/ Dextrose 250 mls @ 250 mls/hr IVPB DAILY [facility] Last Admin: 12/05/19 10:40 Dose: 250 mls/hr Levothyroxine Sodium (Synthroid -) 25 mcg PO DAILY@0700 [facility] Last Admin: 12/05/19 06:03 Dose: 25 mcg Methylprednisolone Sodium Succinate (Solu-Medrol -) 40 mg IVPUSH Q8H-IV [facility] Last Admin: 12/05/19 09:49 Dose: 40 mg Montelukast Sodium (Singulair -) 10 mg PO HS [facility] Last Admin: 12/04/19 21:12 Dose: 10 mg Nicotine (Nicoderm Patch -) 21 mg TD DAILY [facility] Last Admin: 12/05/19 09:53 Dose: Not Given Constitutional: Yes: No Distress, Calm, Obese Eyes: Yes: Conjunctiva Clear, EOM Intact HENT: Yes: Atraumatic, Normocephalic Neck: Yes: Supple, Trachea Midline Cardiovascular: Yes: Regular Rate and Rhythm Respiratory: Yes: Cough, Diminished, No wheeze. No: Accessory Muscle Use, Rales , Rhonchi, SOB, SOB on Exertion, Stridor, Tachypnea ...Inspection: Yes: WNL ...Clubbing: No Gastrointestinal: Yes: Normal Bowel Sounds, Soft, Abdomen, Obese Renal/: Yes: WNL Musculoskeletal: Yes: WNL Extremities: Yes: WNL Edema: No Peripheral Pulses WNL: Yes Integumentary: Yes: WNL Neurological: Yes: WNL, Alert, Oriented ...Motor Strength: WNL Psychiatric: Yes: WNL, Alert, Oriented Labs: Problem List - Problems (1) GERD (gastroesophageal reflux disease) Code(s): K21.9 - GASTRO-ESOPHAGEAL REFLUX DISEASE WITHOUT ESOPHAGITIS (2) Asthma Code(s): J45.909 - UNSPECIFIED ASTHMA, UNCOMPLICATED (3) Allergies Code(s): T78.40XA - ALLERGY, UNSPECIFIED, INITIAL ENCOUNTER Qualifiers: Encounter type: initial encounter Qualified Code(s): T78.40XA - Allergy, unspecified, initial encounter (4) Hypothyroid Code(s): E03.9 - HYPOTHYROIDISM, UNSPECIFIED (5) Morbid obesity Code(s): E66.01 - MORBID (SEVERE) OBESITY DUE TO EXCESS CALORIES (6) Tobacco abuse Code(s): Z72.0 - TOBACCO USE Assessment/Plan Can DC home from the Pulmonary perspective: Prednisone taper Duoneb nebules PRN (patient has home nebulizer) Symbicort 160/4.5, 2 inhalations BID Singulair 10mg QHS No smoking discussed Nicotene patches Will need Sleep Screen after discharge Dr Mariscal Problem List - Problems (1) GERD (gastroesophageal reflux disease) Code(s): K21.9 - GASTRO-ESOPHAGEAL REFLUX DISEASE WITHOUT ESOPHAGITIS (2) Asthma Code(s): J45.909 - UNSPECIFIED ASTHMA, UNCOMPLICATED (3) Allergies Code(s): T78.40XA - ALLERGY, UNSPECIFIED, INITIAL ENCOUNTER Qualifiers: Encounter type: initial encounter Qualified Code(s): T78.40XA - Allergy, unspecified, initial encounter (4) Hypothyroid Code(s): E03.9 - HYPOTHYROIDISM, UNSPECIFIED (5) Morbid obesity Code(s): E66.01 - MORBID (SEVERE) OBESITY DUE TO EXCESS CALORIES (6) Tobacco abuse Code(s): Z72.0 - TOBACCO USE
[2019-12-05 14:19] VITALS: BP 133/85; PULSE 121; TEMP 98.1
== END 2019-12-05 17:51 | disposition home or self-care (01) | DRG 141 ==
LOC: JER 19:12 → JERBED 12-04 00:33 → J8W 12-04 02:18
PROVIDERS: ADMIT Internal Medicine; ATTEND Internal Medicine
DX: J45.31 Mild persistent asthma with (acute) exacerbation (principal); E03.9 Hypothyroidism, unspecified; E66.01 Morbid (severe) obesity due to excess calories; Z68.42 Body mass index [BMI] 45.0-49.9, adult; K21.9 Gastro-esophageal reflux disease without esophagitis; F17.210 Nicotine dependence, cigarettes, uncomplicated
CPT/HCPCS: 36415; 71046-TC-FY; 80053; 82550; 82553; 83735; 84484; 85025; 87804; 90670; 93005; 93010; 94150; 94640; 99285-25; J1644; Q2036

== ENCOUNTER 2020-09-18 22:01 | Emergency (ER) | payer OTHER ==
[2020-09-18 22:14] VITALS: BMI 42.9
[2020-09-18] MEDS ORDERED: DEXAMETHASONE SOD PHOSPHATE 10 MG/1 ML VIAL ONE (22:17)
[2020-09-18] MEDS ORDERED: ALBUTEROL SO4 2.5/IPRATROPIUM 0.5 INH SOL 3 ML VIAL.NEB. NEB ONE ×2 (22:19→22:31)
[2020-09-19 04:15] LABS: BASO % 0.1 % (0-2.0); HEMATOCRIT 34.1 % (32.4-45.2); HEMOGLOBIN 10.8 GM/dL (10.7-15.3); MCH 25.9 pg (25.7-33.7); MCHC 31.7 g/dl (32.0-36.0); MEAN CELL VOLUME 81.9 fl (80-96); MEAN PLT VOLUME 9.1 fl (7.5-11.1); MONO % 1.5 % (3.8-10.2); NEUT % 93.4 % (42.8-82.8); PLATELET COUNT 283 K/MM3 (134-434); RBC 4.16 M/mm3 (3.60-5.2); RDW 16.7 % (11.6-15.6); WHITE BLOOD COUNT 9.2 K/mm3 (4.0-10.0)
[2020-09-19 04:34] LABS: CALCIUM 8.5 mg/dL (8.5-10.1); POTASSIUM 4.4 mmol/L (3.5-5.1)
[2020-09-19 04:35] LABS: ALBUMIN 3.8 g/dl (3.4-5.0)
[2020-09-19 04:38] LABS: CREATININE 1.1 mg/dL (0.55-1.3)
[2020-09-19 04:40] LABS: BILIRUBIN,TOTAL 0.2 mg/dL (0.2-1); TOT PROT 7.4 g/dl (6.4-8.2)
[2020-09-19 05:49] VITALS: TEMP 97.8
[2020-09-19 07:07] LABS: ANISOCYTOSIS 1+; MACROCYTOSIS 0; OVALOCYTE 1+; PLATELET ESTIMATE NORMAL
[2020-09-19] MEDS ORDERED: ALBUTEROL SO4 2.5/IPRATROPIUM 0.5 INH SOL 3 ML VIAL.NEB. NEB ONE ×2 (10:28→10:32)
[2020-09-19 11:57] VITALS: BP 129/68; PULSE 101
== END 2020-09-19 11:56 | disposition home or self-care (01) ==
LOC: JER 22:01
PROC: 3E0F7GC Introduction of Other Therapeutic Substance into Respiratory Tract, Via Natural or Artificial Opening (ICD-10-PCS; principal; 2020-09-18)
PROC: 3E0F7GC Introduction of Other Therapeutic Substance into Respiratory Tract, Via Natural or Artificial Opening (ICD-10-PCS; 2020-09-18)
DX: J45.901 Unspecified asthma with (acute) exacerbation (principal)
CPT/HCPCS: 36415; 71275-TC; 80053; 84703; 85025; 85379; 93970-TC; 99285-25; C9803; Q9967; U0003

== ENCOUNTER 2022-03-03 19:21 | Emergency (ER) | payer OTHER ==
[2022-03-03] MEDS ORDERED: ALBUTEROL SO4 0.083% IH SOL 2.5 MG/3 ML VIAL.NEB. NEB ONE (19:27)
[2022-03-03 19:28] VITALS: BP 121/83; PULSE 100; TEMP 97.6; BMI 54.7
== END 2022-03-03 20:16 | disposition home or self-care (01) ==
LOC: JER 19:21
DX: J45.998 Other asthma (principal)
CPT/HCPCS: 99283-25